=== PATIENT | male | born 1955 | race Caucasian/White ===

== ENCOUNTER 2024-04-20 09:22 | Inpatient (IN) | payer MEDICARE, BC ==
[~2024-04-20] VITALS: Ht 172.7 cm; Wt 69.7 kg
[2024-04-20] VITALS (13 sets, daily range): BP systolic 116–155; BP diastolic 69–87
[2024-04-20 09:42] LABS: EOSINOPHILS 2.5 % (0-6); HEMATOCRIT 43.2 % (35.0-50.0); HEMOGLOBIN 13.8 g/dL (12.0-18.0); LYMPHOCYTES 30.5 % (24-44); MCH 29.4 (27-36); MCV 91.7 fl (81-99); MONOCYTES 11.8 % (0-12); NEUTROPHILS 54.2 % (39-80); PLATELET COUNT 264 K/uL (140-440); RDW 15.2 (10.5-15.0)
[2024-04-20] MEDS ORDERED: ondansetron HCL 4 MG/2 ML VIAL IV ONE (09:45)
[2024-04-20] MEDS ORDERED: SODIUM CHLORIDE 0.9% 1,000 ML IV ONE ×2 (09:45→14:48)
[2024-04-20] MEDS ORDERED: HYDROmorphone HCL 1 MG/ML SYR IV PRN ×3 (09:45→18:45)
[2024-04-20 09:50] LABS: ALBUMIN 3.4 g/dL (3.4-5.0); ALBUMIN/GLOBULIN RATIO 0.77 (1.1-2.4); ANION GAP 15.5 (7-21); BILIRUBIN, TOTAL 0.6 ng/dL (0.2-1.0); BUN/CREATININE RATIO 16.44 (6.0-28.6); CALCIUM 9.1 mg/dL (8.5-10.1); CREATININE, SERUM 1.52 mg/dL (0.70-1.30); POTASSIUM 4.5 mmol/L (3.5-5.1); PROTEIN, TOTAL 7.8 g/dL (6.4-8.2)
[2024-04-20] MEDS ORDERED: LIDOCAINE 2% VISCOUS 6 ML SYR TOP ONE ×2 (10:45→19:45)
[2024-04-20] MEDS ORDERED: LACTATED RINGER'S 1,000 ML IV SCH ×2 (11:15→13:00)
[2024-04-20 12:00] LABS: BILIRUBIN, URINE NEGATIVE (negative); BLOOD/HGB, URINE TRACE-I (Negative); KETONE, URINE NEGATIVE (Negative); LEUK ESTERASE, URINE TRACE (negative); NITRITE, URINE POSITIVE (negative); PH, URINE 6.5 (5-7)
[2024-04-20 12:08] LABS: BACTERIA, URINE 3+ /hpf (negative); CASTS, URINE NONE SEEN \\lpf; COLLECTION TYPE, URINE CLEAN CATCH; CRYSTALS, URINE NONE SEEN (0-1+); EPITHELIAL CELLS, URINE SQUAMOUS 1+ /lpf (0-1+); REFLEX CULTURE, URINE Yes (No); WHITE BLOOD CELLS, URINE >50 /HPF (0-5)
[2024-04-20] MEDS ORDERED: FAMOTIDINE 20 MG/ 2 ML VIAL IV SCH (12:54)
[2024-04-20] MEDS ORDERED: HEParin SOD (PORCINE) 5,000 UNIT/0.5 ML SYR SUB-Q SCH (12:54)
[2024-04-20] MEDS ORDERED: KETOROLAC TROMETHAMINE 30 MG/ML VIAL IV PRN (13:00)
[2024-04-20] MEDS ORDERED: MORPHINE SULFATE 10 MG/ML VIAL IV PRN ×2 (13:00→18:45)
[2024-04-20] MEDS ORDERED: ondansetron HCL 4 MG/2 ML VIAL IV PRN (13:00)
[2024-04-20] MEDS ORDERED: CEFAZOLIN SODIUM 2 GM/20 ML SYR IV ONE (13:00)
[2024-04-20] MEDS ORDERED: HEParin SOD (PORCINE) 5,000 UNIT/ML SDV SUB-Q SCH (13:30)
--- NOTE | 2024-04-20 14:00 | NUR ---
BEDSIDE REPORT RECIEVED FROM ROBERTO CAMPBELL. PT LAYING IN BED REPORTING PAIN 7/10 TO ABD. 1411 PRN MEDICATION ADMINISTERED, SEE MAR, FOR PAIN 7/10 TO ABD. IV FLUSHES WNL. 1420 ROBERTO ZENDEJAS FROM SURGERY HERE TO TAKE PT DOWN. HEBERT EMPTIED. SCDs PLACED. PT TAKEN FOR SURGERY IN BED. NO OTHER NEEDS FROM THIS RN.
[2024-04-20] MEDS ORDERED: propofoL 200 MG/20 ML VIAL ONE (14:42)
[2024-04-20] MEDS ORDERED: ondansetron HCL 4 MG/2 ML VIAL ONE (14:42)
[2024-04-20] MEDS ORDERED: LIDOCAINE HCL 2% 5 ML SDV ONE (14:44)
[2024-04-20] MEDS ORDERED: ROCURONIUM BROMIDE 50 MG/5 ML SYR ONE ×2 (14:44→16:34)
[2024-04-20] MEDS ORDERED: fentaNYL citrate 100 MCG/2 ML VIAL ONE (14:46)
--- NOTE | 2024-04-20 14:50 | NUR ---
REPORT GIVEN TO ROBERTO CONTRERAS.
[2024-04-20] MEDS ORDERED: ePHEDrine sulfate 50 MG/ML AMP ONE ×2 (15:14→17:02)
[2024-04-20 15:38] LABS: ABO A; ANTIBODY SCREEN NEGATIVE; RH POSITIVE
[2024-04-20] MEDS ORDERED: PHENYLEPHRINE HCL 10 MG/ML VIAL ONE ×2 (16:04)
[2024-04-20] MEDS ORDERED: SUGAMMADEX SODIUM 200 MG/2 ML ML ONE (17:00)
[2024-04-20] MEDS ORDERED: DEXAMETHASONE SOD PHOS 4 MG/ML VIAL ONE (17:51)
[2024-04-20] MEDS ORDERED: KETOROLAC TROMETHAMINE 30 MG/ML VIAL ONE (17:51)
[2024-04-20] MEDS ORDERED: MEPERIDINE HCL 25 MG/1 ML VIAL IV PRN (18:45)
[2024-04-20] MEDS ORDERED: droPERidol 5 MG/2 ML VIAL IV PRN (18:45)
[2024-04-20] MEDS ORDERED: NALOXONE HCL 0.4 MG SYR IV PRN (18:45)
[2024-04-20] MEDS ORDERED: CEFAZOLIN SODIUM 2 GM/20 ML SYR IV SCH (18:45)
[2024-04-20] MEDS ORDERED: fentaNYL citrate 50 MCG/ML SDV IV PRN (18:45)
[2024-04-20] MEDS ORDERED: diphenhydrAMINE HCL 50 MG/ML VIAL IV PRN (18:45)
--- NOTE | 2024-04-20 18:59 | NUR ---
PATIENT ARRIVED TO ROOM 129 FROM PACU AT 1850. REPORT RECEIVED FROM STEELER CHELSIE PRIOR TO ARRIVE. PACU REPORT RECEIVED FROM ROBERTO CHOWDARY. PATIENT IS AOX4. REPORTS PAIN "1 BUT I WOULDNT CALL IT PAIN, JUST MORE DISCOMFORT LIKE A STRETCHY FEELING." VS CHARTED. ORIENTED TO ROOM AND CALL LIGHT FUNCTIONS. BED EXIT ALARM PLACED.
--- NOTE | 2024-04-20 19:17 | NUR ---
04/20/241916 Yuli Brown 1802- PT ARRIVES TO PACU, SEMI [place] POSITION. PT EYES OPEN, PT IS CONFUSED TALKING ABOUT THINGS AT HOME. PT IS COMBATIVE AND TRYING TO SIT UP. REORIENTED PT TO TIME AND PLACE. UNABLE TO OBTAIN VITAL SIGNS INITIALLY. O2 AT 8L PER MASK, ALL MONITORS IN PLACE. SALINE LOCK TO LFA, LR INFUSING TO RFA IV. STAFF ATTEMPTING TO REDIRECT PT. 1805- PT STARTING TO CALM DOWN, UNDERSTANDS HE JUST GOT OUT OF SURGERY. PT IS BECOMING COOPERATIVE. 1810- O2 MASK IS SLIPPING, PT IS CONFUSING THE MASK STRINGS FOR HIS HEARING AIDS. PT MADE AWARE HEARING AIDS ARE IN A SAFE CONTAINER. O2 REMOVED AT THIS TIME. DRESSING IN PLACE TO MIDLINE ABD, CDI. PT HAS INTERMITTENT COUGH. 1822- PT SAT UP IN BED, REPORTS MINIMAL PAIN AND TOLERABLE. DENIES NAUSEA. PT REQUESTING WATER DUE TO DRY MOUTH. DR AZEEM PEARSON WITH SIPS, ICE CHIPS PROVIDED. 1830- PT CONTINUES TO HAVE INTERMITTENT COUGH, EDUCATED ON SPLINTING ABD WITH COUGHING OR MOVING AROUND. HEBERT CATHETER SECURED TO PT LEG, SMALL AMOUNT OF CLEAR YELLOW URINE DRAINING. NO SIGNS OF DISTRESS. 1855- PT TAKEN TO ICU, ALERT AND ANSWERING QUESTIONS. ABD SOFT, NON DISTENDED. DRESSING IN PLACE, CDI, ASSESSED WITH MULTIPLE ICU NURSES. LR INFUSING TKO TO RFA, LFA IV SALINE LOCKED. PT TRANSPORTED WITH CARDIAC MONITORING IN PLACE. REPORT TO LISA MEJIA AT BEDSIDE, NO SIGNS OF DISTRESS. CARE OF PT TURNED OVER AT THIS TIME.
--- NOTE | 2024-04-20 19:35 | NUR ---
REPORT RECEIVED FROM DAY SHIFT RN. PATIENT RESTING IN BED. DENIES ANY PAIN OR DISCOMFORT AT THIS TIME. MIDLINE DRESSING CDI. CALL LIGHT WITHIN REACH.
[2024-04-20 20:09] LABS: ALBUMIN 2.7 g/dL (3.4-5.0); ALBUMIN/GLOBULIN RATIO 0.73 (1.1-2.4); ANION GAP 13.1 (7-21); BILIRUBIN, TOTAL 0.3 ng/dL (0.2-1.0); BUN/CREATININE RATIO 15.82 (6.0-28.6); CREATININE, SERUM 1.39 mg/dL (0.70-1.30); POTASSIUM 5.1 mmol/L (3.5-5.1); PROTEIN, TOTAL 6.4 g/dL (6.4-8.2)
--- NOTE | 2024-04-20 20:30 | NUR ---
PATIENT RESTING IN BED WITH EYES CLOSED. RESPIRATIONS EVEN AND UNLABORED. HS MEDICATIONS GIVEN. PATIENT DENIES ANY PAIN AT THIS TIME. DRESSING TO ABD REMAINS CDI. BOWEL TONES HYPOACTIVE AT THIS TIME. LUNGS CTA, DIM IN THE BASES. NOTED BRUISE TO RIGHT ELBOW. IV SITES REMAIN PATENT. IVF INFUSING WITH NO ISSUES OR CONCERNS. PATIENT ALERT AND ORIENTED X 4. SMALL SIPS OF CLEAR FLUIDS GIVEN. VSS. NO FURTHER NEEDS AT THIS TIME. CALL LIGHT WITHIN REACH.
--- NOTE | 2024-04-20 21:01 | NUR ---
THIS RN CALLED PATIENTS WITH UPDATE.
--- NOTE | 2024-04-20 21:47 | EKG ---
[facility] [address] [facility] [place] [id number] Signed Unusual P axis, possible ectopic atrial bradycardia Left axis deviation Nonspecific ST and T wave abnormality Abnormal ECG No previous ECGs available Confirmed by Gill Urbano MD () on 04/20/2024 9:47:38 PM Electronically Signed By: GILL URBANO MD 04/20/24 2147 PATIENT NAME: VAN ALVAREZ Electrocardiogram DATE OF : 55 PHYSICIAN: GILL URBANO MD REPORT #: [id number] REPORT IS CONFIDENTIAL AND NOT TO BE RELEASED WITHOUT AUTHORIZATION
--- NOTE | 2024-04-20 21:48 | NUR ---
PATIENT RESTING QUIETLY IN BED, HEAD OF BED ELEVATED, CALL LIGHT IN REACH NO DISTRESS NOTED, SLIGHT SNORING NOTED, PATIENT ON ROOM AIR 96% OXYGEN SATURATION. V/S STABLE NOTED WHILE SLEEPING PATIENT HEART RATE IN 50'S CURRNENTLY 57/MIN, THIS IS NOT NEW.
--- NOTE | 2024-04-20 22:42 | NUR ---
ASSISTED PATIENT WITH REPOSITIONING IN BED. PATIENT DENIES ANY PAIN AT THIS TIME. CALL LIGHT WITHIN REACH.
--- NOTE | 2024-04-20 22:43 | NUR ---
ATTMEPTED TO CALL TWICE ON CELL PHONE TO REPORT LOW URINE OUT. SAID ON PHONE EARLIER THAT HE WOULD ROUND IN CCU LATER.
--- NOTE | 2024-04-20 22:56 | NUR ---
IN UNIT, GAVE ORDER FOR 500ML BOLUS.
[2024-04-20] MEDS ORDERED: LACTATED RINGER'S 500 ML IV ONE (23:00)
[2024-04-21] VITALS (15 sets, daily range): BP systolic 113–150; BP diastolic 68–94
--- NOTE | 2024-04-21 00:20 | NUR ---
ASSESSMENT COMPLETED. MIDLINE DRESSING REMAINS CDI. PATIENT WITH BOWEL TONES IN ALL 4 QUADRANTS. DENIES PAIN OR DISCOMFORT AT THIS TIME. ALERT AND ORIENTED X 4. NOTED URINE OUTPUT NOT SUFFICIENT. PATIENT WAS BLADDER SCANNED WITH 525ML ON SCAN. HEBERT WAS FLUSHED. URINE RETURN WITH LARGE AMOUNT OF SEDIMENT NOTED. WILL CONTINUE TO MONITOR HEBERT OUTPUT CLOSELY. AT THIS TIME URINE IS QUANITY SUFFICIENT. IVF INFUSING WITH NO ISSUES. VSS AFEBRILE. NO FURTHER NEEDS AT THIS TIME. CALL LIGHT WITHIN REACH.
[2024-04-21] MEDS ORDERED: CEFAZOLIN SODIUM 2 GM/20 ML SYR IV SCH (01:00)
--- NOTE | 2024-04-21 02:00 | NUR ---
PATIENT RESTING IN BED WITH EYES CLOSED. RESPIRATIONS EVEN AND UNLABORED. VSS. HEBERT DRAINAING YELLOW URINE. CALL LIGHT WITHIN REACH.
--- NOTE | 2024-04-21 04:03 | NUR ---
PATIENT RESTING IN BED WITH EYES CLOSED, RESPRIATIONS EVEN AND UNLABORED. CALL LIGHT WITHIN REACH.
--- NOTE | 2024-04-21 04:52 | NUR ---
HEBERT EMPTIED. URINE YELLOW IN COLOR WITH SEDMIMENT. DRESSING TO MIDLINE INCISION REMAINS CDI, SAME SCANT AMOUNT OF DRAINAGE NOTED. PATIENT DENIES PASSING GAS OR NUASEA AT THIS TIME. VSS, PATIENT REPORTS HIS PAIN IS TOLLERABLE AND STATED, " I KNOW IT'S THERE." DENEIS ANY NEEDS AT THIS TIME. CALL LIGHT WITHIN REACH.
[2024-04-21 05:24] LABS: BASOPHILS 0.1 % (0-2); HEMATOCRIT 33.1 % (35.0-50.0); HEMOGLOBIN 10.8 g/dL (12.0-18.0); LYMPHOCYTES 5.9 % (24-44); MCH 29.6 (27-36); MCHC 32.6 g/dl (30-36); MCV 90.7 fl (81-99); MONOCYTES 7.2 % (0-12); NEUTROPHILS 86.8 % (39-80); PLATELET COUNT 193 K/uL (140-440); RBC 3.65 M/ul (4.3-5.7); RDW 15.2 (10.5-15.0)
--- NOTE | 2024-04-21 06:39 | NUR ---
PATIENT NOTED TO HAVE FACIAL GRIMICING, PAIN ASSESSED PRN ADMINSTERED. HEBERT CATH FLUSHED VIA STERILE PROCEDURE. NO FURTHER NEEDS CALL LIGHT WITHIN REACH.
--- NOTE | 2024-04-21 07:36 | NUR ---
SHIFT REPORT RECEIVED FROM ROBERTO RICH. PATIENT RESTING IN BED WITH EYES CLOSED, RESPIRATIONS EVEN AND UNLABORED. REMAINS ON TELEMETRY, SINUS RHYTHM HR IN THE 60S. CALL LIGHT IN REACH.
[2024-04-21] MEDS ORDERED: LACTATED RINGER'S 500 ML IV ONE (08:00)
--- NOTE | 2024-04-21 08:10 | NUR ---
UR CLINICAL REVIEW: MCG/2 MN FOR [facility]ERS[facility] INPT CRITERIA MEDICARE INPT 04/20/24 @ 1254 ORDER MATCHES REG NO AUTH REQUIRED PER MEDICARE GUIDELINES DISCHARGE PENDING FURTHER TREATMENT NEEDS
--- NOTE | 2024-04-21 10:00 | NUR ---
PATIENT RESTING IN BED. WAKES EASILY TO NAME. HEBERT CATHETER REMAINS PATENT. ACTIVITY EDUCATION PROVIDED. PATIENT WISHES TO REST AT THIS TIME UNTIL DR. GANN ROUNDS BUT AGREEABLE GETTING OOBTC AFTER ROUNDS. DENIES NEEDS AT THIS TIME. CALL LIGHT IN REACH.
--- NOTE | 2024-04-21 10:39 | NUR ---
VISITED DURING SPIRITUAL CARE ROUNDS. PT APPEARED TO BE SLEEPING. DID NOT DISTURB. PROVIDED PRAYER.
--- NOTE | 2024-04-21 11:05 | NUR ---
PATIENT RESTING WITH EYES CLOSED, ALLOWED TO REST AT THIS TIME. WILL RETURN TO COMPLETE ASSESSMENT LATER TODAY.
--- NOTE | 2024-04-21 11:21 | NUR ---
DR. GANN IN TO SEE PATIENT. PATIENT ENGAGED AND ASKED QUESTIONS OF PROVIDER. PLAN OF CARE UPDATED AND REVIEWED WITH PATIENT, DENIES QUESTIONS OR CONCERNS.
--- NOTE | 2024-04-21 12:15 | NUR ---
PATIENT UP IN RECLINER, INFORMED HIM THIS NURSE IS PART OF CASE MANAGEMENT AND WOULD LIKE TO DISCUSS HIS NEEDS, IF ANY. ASKS WHAT CASE MANAGEMENT ENTAILS, INFORMED HIM. STATES "IF I NEED ANYTHING I'LL LET YOU KNOW." STATES HE HAS NO DME, HE STILL DRIVES, HAS NO FINANCIAL ISSUES. DENIES NEEDS AT THIS TIME. INSTRUCTED TO NOTIFY STAFF IF HE THINKS OF NEEDS. VERBALIZES UNDERSTANDING.
--- NOTE | 2024-04-21 12:26 | NUR ---
MED REC COMPLETE
--- NOTE | 2024-04-21 12:28 | NUR ---
PATIENT UP TO CHAIR FOR APPROXIMATELY AN HOUR. TOLERATED AMBULATING WELL. CONTINUES TO REMAIN IN CHAIR WITHOUT COMPLAIN. ATTEMPTED TO GET UP WITHOUT ASSISTANCE. SAFETY EDUCATION PROVIDED AND REITERATED TO CALL NURSING STAFF FOR ASSISTANCE. LUNCH PROVIDED. CALL LIGHT IN REACH. DENIES OTHER NEEDS.
--- NOTE | 2024-04-21 13:54 | NUR ---
PATIENT REMAINS UP IN CHAIR. DENIES PAIN WHEN ASKED, JUST REPORTS "IT'S TENDER" IN REFERENCE TO HIS INCISION SITE. DOES ENDORSE TENDERNESS TO PALPATION BUT DENIES NEED FOR PAIN MEDICATION AT THIS TIME. HEBERT CATHETER IS PATENT WITH CLEAR YELLOW URINE. FRESH WATER PROVIDED. CALL LIGHT IN REACH.
--- NOTE | 2024-04-21 15:20 | NUR ---
PATIENT REMAINS UP IN CHAIR RESTING WITH EYES CLOSED. RESPIRATIONS EVEN AND UNLABORED. CALL LIGHT IN REACH.
--- NOTE | 2024-04-21 16:29 | NUR ---
PATIENT MEDICATED WITH TORADOL PER EMAR FOR "SORENESS". C/O SORENESS TO RIBS AND ABDOMEN. UP TO AMBULATE IN THE HALLWAY, LOOPED CCU X 2 THEN MED/SURG UNIT X3. TOLERATED WELL. REPORTED IMPROVEMENT IN SORENESS AFTER AMBULATING. VS CHARTED. LEFT FOREARM IV REMOVED DUE TO LEAKING, TIP INTACT. BACK TO BED, PATIENT SITTING UP IN BED WHILE READING THE NEWSPAPER. HEBERT REMAINS PATENT AND DRAINING CLEAR YELLOW URINE. CALL LIGHT IN REACH.
--- NOTE | 2024-04-21 17:30 | NUR ---
PATIENT REQUESTED BELONGINGS BAG. REMOVED A CONTAINER OF ZYNS. PATIENT REFUSED TO GIVE TO THIS RN AND PLACED A POUCH IN HIS MOUTH. EDUCATION PROVIDED ON NICOTINE USE AND NON-PRESCRIBED NICOTINE. BELONINGS REMOVED FROM REACH AT THIS TIME.
--- NOTE | 2024-04-21 17:46 | NUR ---
DR. GANN UPDATED ON ZYN USE, URINE OUTPUT AND UPDATE ON PAIN CONTROL MEASURE. DR GANN TO PLACE PO PAIN MEDICATION ORDERS. ORDER RECEIVED TO OFFER 21MG NICOTINE PATCH.
[2024-04-21] MEDS ORDERED: NICOTINE 21 MG/24 HR 1 EA TDSY TD SCH (17:52)
--- NOTE | 2024-04-21 18:29 | NUR ---
PATIENT DECLINED NICOTINE PATCH. AGREES TO NOT USE ZYNS WHILE IN THE HOSPITAL. PATIENT WISHES TO REST IN BED AT THIS TIME. SCDS PLACED AND ON. WARM BLANKET PROVIDED WELL FRESH WATER. CALL LIGHT IN REACH.
--- NOTE | 2024-04-21 19:20 | NUR ---
REPORT RECEIVED FROM DAY SHIFT RN. PATIENT RESTING IN BED. HEBERT CATHERTER DRAINAING YELLOW URINE. SCD'D IN PLACE. IVF INFUSING WITH NO ISSUES. PATIENT DENIES ANY PAIN OR DISCOFORT. DRESSING TO MIDLINE CDI. ICE PACK GIVEN FOR MIDLINE INCISION. NO FURTHER NEEDS AT THIS TIME. BED ALARM ON, CALL LIGHT WITHIN REACH.
[2024-04-21] MEDS ORDERED: IBUPROFEN 600 MG TAB PO PRN (20:30)
[2024-04-21] MEDS ORDERED: ACETAMINOPHEN 500 MG TAB PO PRN (20:30)
[2024-04-21] MEDS ORDERED: OXYCODONE/APAP 7.5/325 TAB PO PRN (20:30)
--- NOTE | 2024-04-21 20:30 | NUR ---
TELEPHONE ORDERS RECEIVED FROM FOR PO PAIN CONTROL. VERIIFIED VIA REPEAT BACK METHOD. SEE EMAR. NOTIFIED PRIMARY RN.
--- NOTE | 2024-04-21 20:30 | NUR ---
PATIENT OUT OF BED. AMBULATING AROUND THE UNIT, AMBULATED THROUGH MED SURG FLOOR WITH NO DIFFICULTY. TOLLERATING ACTIVITY WELL. MIDLINE DRESSING REMAINS CDI, NOTED SMALL SHADOWING. BOWEL TONES HYPOACTIVE IN UPPER QUADRANTS, ACTIVE IN LOWER QUADRANTS. DENIES ANY NAUSEA, DENIES ANY PASSING OF GAS AT THIS TIME. HEBERT EMPTIED, DRAINAING YELLOW URINE. IV SITE PATENT. LUNGS CTA. PATIENT REPORTS PAIN TO MIDLINE INCISION. PRN GIVEN SEE MAR. HS MEDICATIONS ADMINSTERED. FRESH WATER GIVEN. ICE PACK GIVEN AND PLACED ON ABDOMEN. NO FURTHER NEEDS AT THIS TIME. CALL LIGHT WITHIN REACH.
--- NOTE | 2024-04-21 22:07 | NUR ---
PATIENT RESTING IN BED WITH EYES CLOSED. RESPRIATIONS EVEN AND UNLABORED. IVF INFUSING, HEBERT CATHERTER DRAINAING WITH NO CONCERNS. SCD'S IN PLACE. CALL LIGHT WITHIN REACH.
[2024-04-22] VITALS (8 sets, daily range): BP systolic 99–132; BP diastolic 67–79
--- NOTE | 2024-04-22 00:30 | NUR ---
PATIENT RESTING IN BED. REPORTS PAIN IS " MINIMAL". BOWEL TONES HYPOACTIVE THROUGHOUT AT THIS TIME. DENIES PASSING GAS, PATIENT DENIES ANY NAUSEA. ABX GIVEN SEE MAR. MIDLINE INCISION REMANINS UNCHANGED, CDI. DENIES ANY NEEDS AT THIS TIME. CALL LIGHT WITHIN REACH.
--- NOTE | 2024-04-22 02:13 | NUR ---
PATIENT RESTING IN BED WITH EYES CLOSED. RESPIRATIONS EVEN AND UNLABORED. CALL LIGHT WITHIN REACH, BED ALARM ON.
--- NOTE | 2024-04-22 03:11 | NUR ---
NEW BAG OF IVF HUNG. IV SITE REMAINS PATENT AND WNL.
[2024-04-22 05:15] LABS: BASOPHILS 0.3 % (0-2); EOSINOPHILS 3.2 % (0-6); HEMATOCRIT 31.9 % (35.0-50.0); HEMOGLOBIN 10.4 g/dL (12.0-18.0); MCH 29.2 (27-36); MCHC 32.5 g/dl (30-36); MCV 89.8 fl (81-99); MONOCYTES 8.4 % (0-12); NEUTROPHILS 74.1 % (39-80); PLATELET COUNT 172 K/uL (140-440); RBC 3.55 M/ul (4.3-5.7); RDW 15.4 (10.5-15.0)
[2024-04-22 05:25] LABS: ANION GAP 9.3 (7-21); BUN/CREATININE RATIO 17.64 (6.0-28.6); CREATININE, SERUM 1.02 mg/dL (0.70-1.30); POTASSIUM 4.3 mmol/L (3.5-5.1)
--- NOTE | 2024-04-22 05:45 | NUR ---
PATIENT DENEIS ANY PAIN AT THIS TIME. BOWEL TONES REMAIN HYPOACTIVE. MIDLINE INCISION IS CDI WITH SAME AMOUNT OF SHADOWNING NOTED AT START OF THIS SHIFT. DENIES PASSING OF GAS BUT REPORTS, " I FEEL LIKE I MIGHT NEED TO GO TO THE BATHROOM." IV SITE REMAINS PATENT. VSS. NO FURTHER NEEDS AT THIS TIME. CALL LIGHT WITHIN REACH.
--- NOTE | 2024-04-22 06:33 | NUR ---
PATIENT MOVED TO ROOM 126. OPRIENTED TO ROOM AND CALL LIGHT. C/O DISCOMFORT TO MIDLINE INCISION. PRN GIVEN SEE MAR. NO FURTHER NEEDS AT THIS TIME. CALL LIGHT WITHIN REACH.
--- NOTE | 2024-04-22 07:00 | NUR ---
REPORT RECIEVED FROM ROBERTO RICH. PT SITTING UP IN BED ON PHONE. PT DENIES ANY NEEDS AT THIS TIME. CALL LIGHT IN REACH.
--- NOTE | 2024-04-22 08:04 | NUR ---
BOARD HAS BEEN UPDATED AND CALL LIGHT HAS BEEN PLACED WITHIN REACH, PATIENT REQUESTED HOT WATER FOR TEA. I DOUBLED THE CUP WHEN GIVING IT TO PATIENT AND LET IT COOL FOR A FEW MINTUES.
--- NOTE | 2024-04-22 08:33 | NUR ---
IN TO ADMINISTER MEDICAITONS, SEE MAR. PT SITTING UP IN BED AND RESPONDS WHEN ADDRESSED. IV FLUSHES WNL. PT REPORTING PAIN /10 AND STATES "MORE JUST SORENESS NOT REALLY PAIN." PT DENIES NICOTINE PATCH THIS MORNING. ASSESSMENT COMPLETE. LUNG SOUNDS CLEAR. BOWEL TONES HYPOACTIVE. ABD SOFT. ABD TENDERNESS WITH PALPATION. MIDLING DRESSING D/I WITH SMALL AMOUNT OF SHADOWING TOWARDS LOWER PORTION OF DRESSING. PEDAL PULSES PALPABLE, EQUAL AND STRONG. RADIAL PULSES PALPABLE, EQUAL AND STRONG. BREAKFAST ARRIVES. PT DENIES ANY OTHER NEEDS AT THIS TIME. CALL LIGHT IN REACH.
--- NOTE | 2024-04-22 11:47 | NUR ---
IN ROOM TO ROUND ON PT. PT DENIES PAIN AT THIS TIME. PT DENIES PASSING FLATUS. PT REQUESTING TO AMBULATED. PT AMBULATES [place]HE[place] WITH STEADY GAIT WITH THIS RN X4 LAPS.
--- NOTE | 2024-04-22 12:05 | NUR ---
IN WITH DR. GANN. PT AND DR. GANN DISCUSS PLAN. PT AGREEABLE. PER DR. GANN PT WILL BE LOW FIBER DIET. PT CAN SELF CATH, SO OKAY TO DC HEBERT. OKAY TO DC IV FLUIDS. VERIFIED WITH REPEAT BACK. PT DENIES ANY OTHER NEEDS AT THIS TIME. CALL LIGHT IN REACH.
[2024-04-22] MEDS ORDERED: CIPROFLOXACIN 500 MG TAB PO SCH (12:14)
[2024-04-22] MEDS ORDERED: CIPROFLOXACIN500 MG PO (12:18)
[2024-04-22] MEDS ORDERED: OXYCODON-ACETA1 EAC2 PO (12:18)
[2024-04-22] MEDS ORDERED: ACETAMINOPHEN500 MG PO (12:18)
[2024-04-22] MEDS ORDERED: FAMOTIDINE20 MG PO (12:18)
[2024-04-22] MEDS ORDERED: NICOTINE1 EAC2 TD (12:18)
[2024-04-22] MEDS ORDERED: IBUPROFEN600 MG PO (12:18)
[2024-04-22] MEDS ORDERED: FLOMAX0.4 MG PO (12:19)
[2024-04-22] MEDS ORDERED: TAMSULOSIN HCL 0.4 MG CAP PO SCH (12:30)
--- NOTE | 2024-04-22 12:46 | NUR ---
FLUID REMOVED FROM HEBERT CATHETER BALLOON. CATHETER REMOVED, TIP INTACT. PT TOLERATED PROCEDURE WELL.
--- NOTE | 2024-04-22 14:00 | NUR ---
REPORT GIVEN TO ROBERTO CONTRERAS.
--- NOTE | 2024-04-22 14:54 | NUR ---
pt is in room and asked for help ordering dinner and is in room watching television. no other cares needed at this time call light within reach
[2024-04-22] MEDS ORDERED: FAMOTIDINE 20 MG TAB PO SCH (21:00)
--- NOTE | 2024-04-22 21:01 | NUR ---
Patient awake, alert and oriented x4, no distress. Patient reports overall good pain control, no nausea. Patient reports last bowel movement was prior to surgery. Vital signs stable. Patient has active bowel tones x4 quadrants. Percocet 7.5/325mg one tab and ibuprofen 600mg po admin per patient request for 3/10 abdominal pain. Fresh water provided. Call light within reach of pt.
--- NOTE | 2024-04-23 01:12 | NUR ---
REPORT FROM DORIS LEDESMA ON BACK, COVERED UP, RESP EVEN AND UNLABORED.
--- NOTE | 2024-04-23 02:53 | NUR ---
rounded on pt. Pt states he was up recently and used bathroom, denies needs, offered to help pt repostion higher in bed as feet were touching foot board, he denied, stated he is comfortable.
[2024-04-23 05:03] VITALS: BP 114/67
--- NOTE | 2024-04-23 05:10 | NUR ---
CHECKED ON PT, AWAKE, REQUESTED BLACK TEA. [employer] INSTRUCTOR INTO ROOM TO DO VS. ASSESSMENT COMPLETED. PT STATED UNLESS HE WAS DREAMING, HE PASSED A LITTLE GAS THIS AM. BOWEL SOUNDS HYPOACTIVE, ABD TENDER, NOT DISTENDED, DRESSING UNCHANGED THIS SHIFT, SCANT OLD DRAINAGE PRESENT. PT STATED THAT HE STRAIGHT CATHED PRIOR TO BED, AND ONCE DURING THE NIGHT. "I AM DRY" SO THAT WORKED OUT SELL, INDICATING HIS ATTENDS WAS CLEAN. DENIES THE NEED FOR PAIN MED, WAS ABLE TO SIT UP HIGHER IN BED. HEARING AIDES GIVEN TO PT PER HIS REQUEST. NO OTHER NEEDS AT THIS TIME.
[2024-04-23 05:17] VITALS: BP 114/67
--- NOTE | 2024-04-23 07:07 | NUR ---
Pt report received from ROBERTO Valerio. Pt is awake, resting supine in bed. Pt requests more hot water for his tea, denies any other needs at this time, denies pain. Call light in reach.
--- NOTE | 2024-04-23 07:28 | NUR ---
pt in bed this am, this diet attendant helped pt order preferred meal from kitchen. no other request were made at this time. call light within reach.
--- NOTE | 2024-04-23 09:01 | NUR ---
PT WALKING SEVERAL LAPS IN PACHECO AND AROUND RN STATION INDEP.
--- NOTE | 2024-04-23 10:08 | NUR ---
Pt has been up, ambulating the hallway x3 laps after breakfast, then up to the chair. Linen change performed while the pt was ambulating. Pt denies increase in pain more than feeling tight at the incision and states that it subsides when he settles in the bed or chair. He rates his pain a 2 out of 10, which his acceptable baseline. Pt was medicated with motrin per emar. Pt's bowel tones were active at my assessment this morning, and while ambulating, pt states he did pass flatus, but no BM yet. The incision is covered with a small amount of shadowing noted at the bottom of the dressing, but otherwise the dressing is dry and intact.
[2024-04-23 10:31] VITALS: BP 129/78
--- NOTE | 2024-04-23 13:14 | NUR ---
Dr. Brown in with pt discussing discharge.
--- NOTE | 2024-04-23 13:29 | NUR ---
Pt is waiting at nurse's station while Dr. Brown enters discharge orders. He has telephoned his and requested she arrive in about 30 minutes to pick him up.
--- NOTE | 2024-04-23 13:47 | OR ---
[facility] [address], [place] [address] Signed DATE OF OPERATION: 04/20/2024 SURGEON: Arvin Gann MD PREOPERATIVE DIAGNOSES: 1. Closed loop obstruction of small bowel from left transdiaphragmatic hernia-- history of left hemidiaphragm relaxing incision 2. History of esophagectomy with gastric pull-up at [facility] three years ago. 3. History of paraconduit incarcerated hernia (colon) repaired by robotic approach including left diaphragmatic relaxing incision (Dr. Kae Rodriguez, [facility]). POSTOPERATIVE DIAGNOSIS: Closed loop obstruction with strangulated and infarcted segment of small bowel (24 inches via left diaphragmatic hernia). PROCEDURE: 1. Open reduction of left transdiaphragmatic herniated loop of small bowel including partial incision of diaphragm at the herniated location. 2. Repair of diaphragmatic defect without implantation of mesh. 3. Segmental small bowel resection (24 inches) with [id number] isoperistaltic anastomosis). ANESTHESIA: General endotracheal, Alexis Lorenzo CRNA. INDICATIONS: This 69-year-old white man lives in [place], [place], but does have a home in [place] as well. Three years ago he underwent esophagectomy at [facility] in [place], [place] with a gastric pull-up reconstruction of the esophagus. He showed no evidence of recurrent malignancy. One year ago while in [place], [place], he suffered severe and extreme epigastric pain and was found to have a transdiaphragmatic hernia at the conduit site (diaphragmatic ella area) of colon, which was repaired robotically by Dr. Kae Rodriguez following transfer to [facility] in [place]. Review of the operative report shows a relaxing incision was made in the left hemidiaphragm to accommodate adequate repair of the hernia. Mesh was not implanted. This morning, the patient had severe and extreme epigastric pain, which was reminiscent of his previous episode of herniation. He presented to the emergency room where he was evaluated by Dr. George Simon, emergency room physician. A CT scan of the abdomen Electronically Signed By: ARVIN GANN MD 04/23/24 1347 PATIENT NAME: VAN ALVAREZ OPERATIVE REPORT DATE OF : 55 REPORT #: [id number] PHYSICIAN: ARVIN GANN MD PCP: NO PRIMARY CARE PHYSICIAN REPORT IS CONFIDENTIAL AND NOT TO BE RELEASED WITHOUT AUTHORIZATION [facility] [address] [place] [id number] Signed was performed, which confirmed small bowel herniation through the left hemidiaphragm. This did not appear to be a hiatus transgression of small bowel, but rather in the left hemidiaphragm. The operative report was obtained confirming a relaxing incision made in the left hemidiaphragm and likely that site has weakened and allowed for transdiaphragmatic herniation of the small bowel. The patient has been fluid resuscitated and is now to undergo emergency repair of the defect with reduction of the small bowel. The patient and understand the risk of bleeding, infection, need for possible bowel resection, need for other indicated procedures including possible left thoracotomy to allow for adequate reduction of the hernia. Understanding this they wished to proceed. Of special note, the patient has additionally undergone radical cystectomy for malignancy of the bladder in the past and has a probable ileal conduit, which was quite markedly dilated and decompressed with a Cortes catheter. FINDINGS: Found was some dark bloody fluid within the upper abdomen. An open approach was undertaken. The previous repair at the diaphragm, the gastric conduit was without sign of herniation or ischemia. A loop of bowel indeed was herniated through the left posterolateral diaphragm likely related to ther relaxing incsion of the left diaphragm from a year ago. Reduction of the hernia was challenging requiring some extension of the diaphragmatic defect as completely infarcted bowel was noted within the herniated portion above the diaphragm. No rupture of the bowel occurred during and careful and meticulous mobilization of the bowel. Essentially complete necrosis was noted, though the serosa was intact. There was some old blood within the small bowel downstream. Operation included repair of the diaphragmatic defect with interrupted Prolene suture without implantation of mesh and good repair was accomplished. Segmental small bowel resection of 24 inches of completely necrotic bowel was undertaken as well with a [id number]-[id number] functional end-to-end enteroenterostomy. There were no other findings of concern. DESCRIPTION OF PROCEDURE: The patient was brought to the operating room, given a general endotracheal anesthetic. Preoperative antibiotic Ancef was given. Sequential compression device stockings were used and heparin subcutaneously administered. The abdomen and chest were prepared with a chlorhexidine solution and draped sterilely. The operative field extended from above the nipples inferiorly to the knees. Electronically Signed By: ARVIN GANN MD 04/23/24 134 PATIENT NAME: VAN ALVAREZ OPERATIVE REPORT DATE OF : 55 REPORT #: [id number] PHYSICIAN: ARVIN GANN MD PCP: NO PRIMARY CARE PHYSICIAN REPORT IS CONFIDENTIAL AND NOT TO BE RELEASED WITHOUT AUTHORIZATION [address] [address] Signed An incision was made extending from the xiphoid to just above the umbilicus. Later the incision was taken around the umbilicus somewhat. The patient has a thin body habitus and an entry to the abdomen was no problem. Upon entry into the abdominal cavity, there was some dark bloody fluid in the upper abdomen. Palpation showed the gastric conduit to be well secured to the diaphragmatic attachments without sign of problem with this portion of bowel. The small bowel extending up to the left hemidiaphragm was quite dense and adherent to the defect. I suspect the herniation has occurred quite a long time ago actually with only recent progression to the acute problem. Various manipulations of the two limbs of bowel extending to the diaphragmatic defect were undertaken, but easy reduction of the hernia was absolutely not forthcoming. On that basis, a right angle clamp was inserted into the defect on the medial aspect along the line of previous diaphragmatic incision freeing the diaphragm a bit more. This did allow for better reduction of some of the bowel. The bowel itself was dense and black and on the verge of liquefactive necrosis in fact. Extreme care was taken in manipulating the bowel to allow for further reduction. Additional opening of the diaphragmatic defect was required, but with extreme care and caution, the bowel loops were able to be more fully examined digitally into the left pleural space and ultimately the bowel was reduced completely. The segment of bowel that had been incarcerated was completely infarcted, but there was no enterotomy or disruption of the bowel through the course of the dissection. Irrigation was undertaken in the pleural area on the left side. The defect of the diaphragm at this point measured approximately 4 cm. The small bowel was set aside and examination of the diaphragm more fully undertaken. The surrounding soft tissue was freed with blunt and electrocautery dissection. Repair of the diaphragmatic defect was deemed most appropriate with primary closure rather than implantation of mesh. There as no undue tension in any way and given the infarcted bowel, mplantation of mesh in the setting was deemed inadvisable. Interrupted 0 Prolene sutures were secured in a horizontal mattress configuration to repair the diaphragmatic defect. Prior to closing the final suture, a red rubber catheter was placed in the left pleural space and aspirated with a syringe and withdrawn, closing the defect definitively. Irrigation was undertaken. There was no sign of untoward bleeding or other problems. Attention was turned towards the small bowel segment. The demarcation of viable versus nonviable bowel was quite obvious. Segmental resection certainly was needed. The mesentery associated with the small bowel segment was incised with electrocautery and hemostats applied to the mesentery securing the vascular pedicles with 2-0 silk ties. A MAMADOU stapling device was used to transect viable bowel proximally and distally. Infarcted segment was sent for permanent pathology. Electronically Signed By: ARVIN GANN MD 04/23/24 1347 PATIENT NAME: VAN ALVAREZ OPERATIVE REPORT DATE OF : 55 REPORT #: [id number] PHYSICIAN: ARVIN GANN MD PCP: NO PRIMARY CARE PHYSICIAN REPORT IS CONFIDENTIAL AND NOT TO BE RELEASED WITHOUT AUTHORIZATION [facility] [address] [place] [id number] Signed The stapled ends of the transected bowel were sewn over with interrupted 3-0 silk suture in a Lembert configuration. A eeir-mz-idbj enteroenterostomy was undertaken in an isoperistaltic fashion with a two-layer technique of interrupted 3-0 silk in the serosal layer and interrupted 3-0 Vicryl in the mucosal layer. Notably, upon opening the bowel segments, old liquefactive of blood was noted within the bowel lumen. The bowel itself was quite viable, however. The mesenteric defect was secured with interrupted 3-0 silk sutures to avoid mesenteric herniation and the bowel was replaced in the abdominal cavity. Copious irrigation with warm saline was undertaken. Inspection of the operative site of the diaphragm showed good hemostasis overall. A small amount of Emilio powdered agent was applied to the area as well. The spleen was examined on its medial aspect and found to be hemostatic without injury, and nearby colonic segments similarly normal. Plans were then made for closure. The midline fascia was reapproximated with running bidirectional #1 PDS suture. The skin closed with running subcuticular 3-0 Vicryl. Steri-Strips were applied as was an active coat dressing. The patient was ultimately extubated and transferred to recovery room in good condition having suffered no known complication. Operation was somewhat prolonged, complicated and difficult. Arvin Gann MD /MODL /[id number] cc: MD Dr. Kae Castañeda [place], [place] Electronically Signed By: ARVIN GANN MD 04/23/24 1347 PATIENT NAME: VAN ALVAREZ OPERATIVE REPORT DATE OF : 55 REPORT #: [id number] PHYSICIAN: ARVIN GANN MD PCP: NO PRIMARY CARE PHYSICIAN REPORT IS CONFIDENTIAL AND NOT TO BE RELEASED WITHOUT AUTHORIZATION [facility] [address] [facility] [place], [place] [address] Signed Copies: GEORGE SIMON MD ~ Electronically Signed By: ARVIN GANN MD 04/23/24 1347 PATIENT NAME: VAN ALVAREZNARD OPERATIVE REPORT DATE OF : 55 REPORT #: [id number] PHYSICIAN: ARVIN GANN MD PCP: NO PRIMARY CARE PHYSICIAN REPORT IS CONFIDENTIAL AND NOT TO BE RELEASED WITHOUT AUTHORIZATION
--- NOTE | 2024-04-23 13:47 | CONS ---
[facility] [address] [place], [place] [address] Signed DATE OF CONSULTATION: 04/20/2024 TIME: 11:40 a.m. REQUESTING PHYSICIAN: Dr. Simon. PROBLEM: Transdiaphragmatic small bowel hernia with probable incarceration. HISTORY OF PRESENT ILLNESS: This 69-year-old white man lives in [place] but does have a residence in [place]. This morning approximately at 7:00 a.m. he has awakened with severe upper abdominal pain and some nausea and vomiting. Notably, the patient has undergone an esophagectomy with a gastric pull-up approximately three years ago at [facility]. Additionally, one year ago having been presenting with similar symptoms at a hospital in [place], [place], he was found to have a presumed transdiaphragmatic hernia for which he was transferred likely to [facility] in [place] and underwent what sounds like a laparoscopic or possibly robotic repair of the diaphragmatic hernia. He is uncertain, but does believe he may have had implantation of some type of mesh associated with the repair. Additionally, he has a distant history of radical cystectomy for bladder cancer for which he has a neobladder in place. He catheterizes himself on a routine basis for that. Evaluation in the emergency room by Dr. George Simon include a CT scan of the abdomen. This did confirm postoperative changes of esophagectomy with a gastric pull-up and poorly enhancing and dilated and edematous small bowel loops extending to what appears to me to be a separate small diaphragmatic defect on the left side. The defect was considered 18 mm in greatest dimension. A normal colon was noted. He had severe atherosclerotic disease. A markedly dilated neobladder was noted and this has since been decompressed with a Cortes catheter. He has no other underlying medical problems, though he does take trazodone on a routine basis. SOCIAL HISTORY: He is . He is accompanied by his at this time. As noted, he lives in [place] Electronically Signed By: ARVIN GANN MD 04/23/24 1347 PATIENT NAME: VAN ALVAREZ CONSULTATION DATE OF : 55 REPORT #: [id number] PHYSICIAN: ARVIN GANN MD PCP: NO PRIMARY CARE PHYSICIAN REPORT IS CONFIDENTIAL AND NOT TO BE RELEASED WITHOUT AUTHORIZATION [facility] [address] [place] [id number] Signed [facility] generally, though does have a place of abode in [place]. REVIEW OF SYSTEMS: He denies any shortness of breath or chest pain per se. He does have upper abdominal pain. He has no fever or chills. PHYSICAL EXAMINATION: GENERAL: Relatively thin white man, who does not look systemically toxic at this time. NECK: Trachea is midline. There is no crepitus. CHEST: Clear. HEART: Regular without murmur. ABDOMEN: Nondistended and generally flat. There are two adjacent incisions lateral to the umbilicus. There is no sign of midline upper incision. He does have a low midline incision related to probable bladder surgery in the past. He does not have inordinate tenderness of the abdomen. I have reviewed the CT scan in detail in multiple planes including lateral, AP and transverse. ASSESSMENT: The patient has what appears to be a transdiaphragmatic hernia likely recurrent from previous repair done one year ago in [place], [place]. I did discuss the issue with the patient and his that the main issue at this point is reduction of the herniated bowel so as to avoid bowel ischemia or compromise and repair the defect as appropriate. Since there has been an apparent similar intervention a year ago in [place], [place], possibility of implanted mesh already in place is worthy of knowing as reduction of the hernia may be more problematic as this may represent a recurrent hernia. Additionally, the possibility of requiring a left lateral thoracotomy for additional intervention has to be considered. I did discuss all this with the patient in detail and with Dr. Simon as well. Plan for now, continue with IV fluids and bladder decompression and will attempt to obtain the operative report from a year ago. Operative intervention will need to be done as promptly as reasonable. He does tell me that at his similar presentation in [place], the operation took place the day following his presentation to that facility. MD TRISH Lainez/EMELYL /[id number] Electronically Signed By: ARVIN GANN MD 04/23/24 1347 PATIENT NAME: VAN ALVAREZ CONSULTATION DATE OF : 55 REPORT #: [id number] PHYSICIAN: ARVIN GANN MD PCP: NO PRIMARY CARE PHYSICIAN REPORT IS CONFIDENTIAL AND NOT TO BE RELEASED WITHOUT AUTHORIZATION [address] [address] Signed cc: George Simon MD Copies: GEORGE SIMON MD ~ Electronically Signed By: ARVIN GANN MD 04/23/24 1347 PATIENT NAME: VAN ALVAREZ CONSULTATION DATE OF : 55 REPORT #: [id number] PHYSICIAN: ARVIN GANN MD PCP: NO PRIMARY CARE PHYSICIAN REPORT IS CONFIDENTIAL AND NOT TO BE RELEASED WITHOUT AUTHORIZATION
--- NOTE | 2024-04-23 13:47 | CONS ---
[facility] [address] [facility] [place], [place] [address] Signed DATE OF CONSULTATION: 04/20/2024 ADDENDUM: TIME: 12:50 p.m. The operative report has been obtained from Josefa Fritz [place] [facility] which was reviewed in detail confirming the patient had a paraconduit hernia (hernia through sauk-suiattle esophageal hiatus) causing herniation of colon. As the defect at the hiatus was quite large and could not be reapproximated, a relaxing incision was made lateral to the paraconduit site. I see no evidence that mesh was implanted in any way. The hiatus was closed with interrupted 0 Ethibond sutures reapproximating the crura and the gastric conduit was pexed to the left ella as well. With that information, it is likely that the relaxing incision itself is responsible for the current hernia defect of small bowel through the diaphragmatic hiatus. I would recommend prompt operation to include reduction of the hernia and repair of the diaphragmatic defect. This may require mesh or some other means of closure. The risk of bleeding, infection, need for additional left lateral thoracotomy incision, and so forth were reviewed with the patient and his . They understand and wished to proceed. We will plan to do operation as soon as reasonable today. In the meantime, preoperative antibiotics and so forth will be initiated. MD TRISH Lainez/STARR /[id number] cc: MD Kae Castañeda MD Electronically Signed By: ARVIN GANN MD 04/23/24 1347 PATIENT NAME: VAN ALVAREZ CONSULTATION DATE OF : 55 REPORT #: [id number] PHYSICIAN: ARVIN GANN MD PCP: NO PRIMARY CARE PHYSICIAN REPORT IS CONFIDENTIAL AND NOT TO BE RELEASED WITHOUT AUTHORIZATION [address] [address] Signed Copies: MONICA SIMON MD ~ Electronically Signed By: ARVIN GANN MD 04/23/24 1347 PATIENT NAME: VAN ALVAREZ CONSULTATION DATE OF : 55 REPORT #: [id number] PHYSICIAN: ARVIN GANN MD PCP: NO PRIMARY CARE PHYSICIAN REPORT IS CONFIDENTIAL AND NOT TO BE RELEASED WITHOUT AUTHORIZATION
[2024-04-23 13:53] VITALS: BP 128/76
--- NOTE | 2024-04-25 16:49 | DS ---
[facility] [address], [place] [address] Signed ADMISSION DATE: 04/20/2024 DISCHARGE DATE: 04/23/2024 REASON FOR ADMISSION: Closed-loop obstruction of small bowel in the left thorax related to diaphragmatic hernia. HISTORY OF PRESENT ILLNESS: This 69-year-old man lives in [place], [place] but does have a home in [place] as well. Three years ago, he underwent esophagectomy at [facility] with a gastric pull-up reconstruction of the esophagus. He has shown no sign of recurrent malignancy with surveillance. He is under the care of Oscar Espino in [facility], medical oncologist. One year ago while visiting in [place], [place], he suffered severe and extreme epigastric pain, was found to have a transdiaphragmatic hernia at the conduit site (diaphragmatic ella area with incarcerated colon). This was repair of robotically by Dr. Kae Rodriguez in [place], [place] at [facility]. Review of the operative report shows a relaxing incision was made in the left hemidiaphragm to accommodate adequate repair of the hernia. The patient presented to [facility] with severe epigastric pain reminiscent of his previous episode of herniation. He was evaluated in the emergency room with CT scan under the direction of Dr. George Simon, emergency room physician confirming small-bowel herniation to the left hemidiaphragm. This did not appear to be a hiatal transgression of the small bowel, but rather a defect in the left hemidiaphragm. He was admitted for further evaluation and care. PERTINENT PHYSICAL EXAMINATION: GENERAL: Showed a well-developed, well-nourished white man, who was not systemically toxic, but was quite uncomfortable. CHEST: Clear. HEART: Regular. ABDOMEN: Showed mild tenderness in the epigastric area. EXTREMITIES: Show no clubbing, cyanosis, or edema. IMAGING DATA: CT scan of the abdomen showed considerable amount of small bowel within the left hemidiaphragm through a defect measured about 1.8 cm. There was no sign of malignancy in the abdomen or chest. Additionally noted was a neobladder which was markedly distended and subsequently decompressed with Cortes catheter. HOSPITAL COURSE: Electronically Signed By: ARVIN GANN MD 04/25/24 1649 PATIENT NAME: VAN ALVAREZ DISCHARGE SUMMARY DATE OF : 55 REPORT #: [id number] PHYSICIAN: ARVIN GANN MD PCP: NO PRIMARY CARE PHYSICIAN REPORT IS CONFIDENTIAL AND NOT TO BE RELEASED WITHOUT AUTHORIZATION [facility] [address], [place] [address] Signed The patient underwent fluid resuscitation, broad-spectrum antibiotic administration and emergency operation, which was accomplished through an upper midline incision. Indeed, he was found to have a closed loop obstruction of small bowel herniated into the left pleural space through the left diaphragmatic defect. I suspect this defect resulted from breakdown of the relaxing incision that had been used a year before to allow for crural reapproximation of the nikolai GE junction. There was no sign of hernia in relation to the hiatus it is noted. The defect required some additional opening to allow for successful reduction of the small bowel. Two feet of small bowel was herniated above the diaphragm that was completely infarcted. There required segmental resection with a functional end-to-end, [id number]-[id number] anastomosis. The diaphragmatic defect was repaired with interrupted 0 Prolene sutures in a horizontal mattress configuration. Mesh was not implanted. The left pleural space was aspirated prior to closure of the defect and postoperative chest x-ray showed no sign of pneumothorax or other issue. His postoperative course was quite unremarkable. He had prompt improvement of his symptoms and was begun on a liquid diet and subsequently full liquid and ultimately a regular diet which he tolerated well. He has passed flatus prior to discharge. As regard to his distended neobladder, Cortes catheterization was undertaken and intermittent catheterization by the patient as is his usual routine initiated as well. A urinalysis had been obtained at the outset by the emergency room personnel, which did show E coli and this was treated with oral antibiotic Cipro. Flomax 0.4 mg was initiated as he did have what appeared to be bladder outlet obstructive type symptoms and he did note improvement with it. Of note, he is to see a urologist in [place], [place] in July regarding his neobladder and urinary retention type complaints. By the time of discharge he is ambulating well, tolerating a regular diet. Incision is healing well and he is requiring essentially no opiate medication. DISCHARGE MEDICATIONS: Will include: 1. Cipro 500 mg p.o. b.i.d. #10. 2. Nicotine 21 mg patch transdermal daily, #30, refill 2. 3. Motrin 600 mg p.o. q.6 hours as needed for pain, #60, no refills. 4. Percocet 7.5/325 1-2 p.o. q. 6 hours p.r.n. pain, #6. 5. Tylenol 500 mg two tablets p.o. q.6 hours as needed for pain, #30, refill 2. 6. Pepcid 20 mg p.o. q.12 hours, #60, refill 0. 7. Flomax 0.4 mg p.o. daily #7, refill 10. DISCHARGE DIAGNOSES: 1. Closed loop obstruction of small bowel with complete infarction (24 inches in length) from left hemidiaphragm defect and herniation into the left pleural space. Electronically Signed By: ARVIN GANN MD 04/25/24 1649 PATIENT NAME: VAN ALVAREZ DISCHARGE SUMMARY DATE OF : 55 REPORT #: [id number] PHYSICIAN: ARVIN GANN MD PCP: NO PRIMARY CARE PHYSICIAN REPORT IS CONFIDENTIAL AND NOT TO BE RELEASED WITHOUT AUTHORIZATION [facility] [address], [place] [address] Signed 2. Distant history of esophagectomy with gastric pull-up ([facility] three years ago). 3. History of paraconduit transdiaphragmatic herniation (colon) repaired at [place], [place] one year ago by Kae Rodriguez MD. 4. Distant history of total cystectomy with neobladder reconstruction requiring daily catheterization. 5. Incidental finding of E coli urinary tract infection. 6. Tobacco dependency (chew). FOLLOW-UP PLANS: He will call on Wednesday to set up an appointment. He will see me back in the office in four weeks more or less. He will return to the ongoing care of his medical oncologist, Dr. Oscar Espino and is anticipated to have urologic followup in July in [place], [place]. MD TRISH Lainez/EMELYL /[id number] cc: Kae Rodriguez MD. MD Dr. Oscar Castañedastein Copies: GEORGE SIMON MD ~ Electronically Signed By: ARVIN GANN MD 04/25/24 1649 PATIENT NAME: VAN ALAVREZ DISCHARGE SUMMARY DATE OF : 55 REPORT #: [id number] PHYSICIAN: ARVIN GANN MD PCP: NO PRIMARY CARE PHYSICIAN REPORT IS CONFIDENTIAL AND NOT TO BE RELEASED WITHOUT AUTHORIZATION
--- NOTE | 2024-04-27 15:47 | PATH ---
[facility] [address], [place] [address] Signed SPECIMEN(S): A MID PORTION SMALL BOWEL SPECIMEN SOURCE: A. MID PORTION SMALL BOWEL CLINICAL HISTORY: Diaphragmatic hernia of small bowel FINAL PATHOLOGIC DIAGNOSIS: Mid portion of small bowel: - Segment of benign bowel with central bowel mucosal necrosis and diffuse bowel wall hemorrhage. - Incidental lymph node with hemorrhagic stroma and reactive features. JVR:clv MICROSCOPIC EXAMINATION: Histologic sections of all submitted blocks are examined by light microscopy. These findings, together with the gross examination, support the pathologic diagnosis. GROSS DESCRIPTION: The specimen, labeled and designated "Dontae, midportion of small bowel," is received fresh and placed in formalin and consists of and unoriented and looped segment of small intestine that is received stapled and sutured at both ends. The specimen measures 43.5 cm in length by 2.5-3.5 cm in diameter. Running along the length of the specimen is scant to moderate, attached mesenteric tissue which measures up to 4.5 cm in thickness. The serosa of the bowel is diffusely dusky, but the staple margins are grossly viable. Fully opening the specimen demonstrates a diffusely shaggy and slightly edematous mucosa that is unremarkable for any discrete masses. The bowel wall ranges from 0.1-0.4 cm in thickness and displays intramural hemorrhage throughout. Sectioning through the attached mesentery demonstrates heavy congestion throughout. Surgical First Assistant sections are submitted in A1-A3. Cassette Summary: (A1) both staple line margins, en face (A2-A3) bowel wall, full-thickness, to include congested mesentery in A3 AM (under the direct supervision of a pathologist) The Gross Description was prepared using a voice recognition system. The report PATIENT NAME: VAN ALVAREZ PATHOLOGY DATE OF : 55 REPORT #: [id number] PHYSICIAN: RAN PATHOLOGY PCP: NO PRIMARY CARE PHYSICIAN REPORT IS CONFIDENTIAL AND NOT TO BE RELEASED WITHOUT AUTHORIZATION [facility] [address], [place] [address] Signed was reviewed for accuracy; however, sound-alike word errors, addition and/or deletions may occur. If there is any question about this report, please contact Client Services. PERFORMING LABORATORY: Technical component was performed by [facility], [address] [place] [address] (CLIA# [id number]). Professional interpretation was performed by [facility] - [facility], [address] [place] [id number] (CLIA#: [id number]). Diagnostician: Hesham Sarmiento MD Pathologist Electronically Signed 04/27/2024 Copies: ~ PATIENT NAME: VAN ALVAREZ PATHOLOGY DATE OF : 55 REPORT #: [id number] PHYSICIAN: RAN PATHOLOGY PCP: NO PRIMARY CARE PHYSICIAN REPORT IS CONFIDENTIAL AND NOT TO BE RELEASED WITHOUT AUTHORIZATION
== END 2024-04-23 13:45 | disposition home or self-care (01) | DRG 326 ==
LOC: ED 09:22 → MS 13:11 → CCU 13:11 → MS 04-22 06:15
PROVIDERS: Emergency Medicine; Nurse Anesthetist, Certified Registered; ADMIT Surgery; ATTEND Surgery
PROC: 0DB80ZZ Excision of Small Intestine, Open Approach (ICD-10-PCS; 2024-04-20)
PROC: 0BQT0ZZ Repair Diaphragm, Open Approach (ICD-10-PCS; principal; 2024-04-20 14:45)
DX: K44.1 Diaphragmatic hernia with gangrene (principal); K55.029 Acute infarction of small intestine, extent unspecified; Z85.51 Personal history of malignant neoplasm of bladder; Z85.01 Personal history of malignant neoplasm of esophagus; Z90.49 Acquired absence of other specified parts of digestive tract
CPT/HCPCS: 00840; 36415; 51702; 71045; 74177; 80048; 80053; 81001; 83690; 85025; 86850; 86900; 86901; 87077; 87088; 87186; 88307; 93005; 93010; 99285-25; A9270; J0690; J1100; J1170; J1644; J1885; J2001; J2371; J2405; J2704; J3010; J3490; J7030; J7121; Q9967

== ENCOUNTER 2024-04-26 07:46 | Inpatient (IN) | payer MEDICARE, BC ==
[~2024-04-26] VITALS: Ht 172.7 cm; Wt 67.4 kg
[2024-04-26] VITALS (15 sets, daily range): BP systolic 104–144; BP diastolic 68–94
--- NOTE | ~2024-04-26 | DS ---
[facility] [address], [place] [address] Draft ADMISSION DATE: 04/26/2024 DISCHARGE DATE: 05/04/2024 REASON FOR ADMISSION: Small bowel obstruction. HISTORY OF PRESENT ILLNESS: This 69-year-old white man is from [place]. He had been admitted on April 20, 2024 with an incarcerated closed-loop obstruction through the defect in the left hemidiaphragm. Eight days prior to current evaluation, he underwent operation, which included reduction of the segment of bowel from the left hemithorax and repair of the diaphragmatic defect and resection of 2 feet of frankly necrotic small bowel. A idls-lf-edco isoperistaltic anastomosis was performed after resection of this necrotic small bowel. The previous site of his esophageal hiatus had no sign of associated hernia and the previous repair appeared to be intact. Of special note, three years ago, he underwent esophagectomy for esophageal carcinoma at [facility]. Resection included a gastric pull-up procedure for reconstruction. One year ago in [place], [place], he underwent emergency operation for a paraconduit hernia (hernia alongside the esophageal hiatus) associated with a gastric pull-up and the incarcerated viscus was herniated colon. Repair included medialization of the left crura around this stomach forming a relaxing incision which had been made in the left hemidiaphragm, no doubt accounting for his more recent herniated small bowel. The patient presented to the emergency room at [place], [place] on the day of current admission and is evaluated by the emergency room physician, Dr. Gonzales (telephone #[phone]). He had complaints of abdominal pain and distention. A CT scan was performed approximately 6 a.m. showing markedly dilated loops of small bowel and what was thought to be a transition point in the left lower quadrant and marked distention of the gastric tube and some residual free air from recent laparotomy. The patient was accepted in transfer from [place] for further admission for my evaluation and treatment. PERTINENT PHYSICAL EXAMINATION: GENERAL: At the time of admission shows a pleasant white man, who did not look systemically toxic. VITAL SIGNS: Currently temperature of 97.1, pulse 63, blood pressure 139/89. NECK: Trachea midline. CHEST: Clear with normal respiratory excursion. ABDOMEN: Mildly distended but not massively so. There is no focal tenderness. EXTREMITIES: Showed no clubbing, cyanosis, or edema. PATIENT NAME: VAN ALVAREZ DISCHARGE SUMMARY DATE OF : 55 REPORT #: [id number] PHYSICIAN: ARVIN GANN MD PCP: MELY GARCIA REPORT IS CONFIDENTIAL AND NOT TO BE RELEASED WITHOUT AUTHORIZATION [facility] [address], [place] [address] Draft LABORATORY STUDIES: Showed a white count of 2.71 with hematocrit of 35.5, platelets 255,000. Lactic acid level normal. Electrolytes normal overall. Creatinine was elevated at 1.67. Lipase level 92, band forms apparently 35%. HOSPITAL COURSE: The patient had been accepted in transfer with small-bowel obstruction and intra-abdominal free air obviously concerning for possible perforated bowel. His clinical situation was not consistent with peritonitis particularly and therefore he did not undergo immediate operation. A nasogastric tube had been placed in [place], which allowed for decompression of the dilated stomach. Nasogastric tube could not be advanced very far and the tip of it was located just below the level of the clavicles on upright chest x-ray. Nevertheless, it was not functioning well. 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 The neobladder is composed of a segment of small bowel itself. He self catheterizes. A Cortes catheter was placed. It is noted that he had a urinary tract infection identified on his previous hospitalization and had been on antibiotic Cipro for E coli related urinary tract infection. Upon review of his clinical history, it appeared that he had ingested possibly high fiber diet which may have accounted for what appeared to be a small bowel obstruction at the site of the anastomosis. We are mindful that his stomach does not have the intrinsic ability for "churning" but rather is an esophageal conduit and therefore his diet of relatively solid and fibrous food may have accounted for obstruction at the recent anastomosis. He was observed with continuous nasogastric tube decompression showing relatively high outputs of fluid. Plain abdominal x-rays continue to show markedly dilated small bowel loops. A CT scan was repeated in particular relation to the free air that was noted on the original CT in [place] showing essentially no free air and resorption of the free air that was present. There was a minimal amount of left pleural fluid as well. The patient did have episodic fever, though white count was very low. Initiation of antibiotic meropenem was undertaken on the basis of his positive urinary culture from last admission, which had shown E coli and strep pneumoniae. Both pathogens were sensitive to meropenem. It was deemed most likely that his obstruction was at the anastomotic site, probably related to edema and without sign of abscess or free perforation. He did not have significant abdominal pain particularly, but as he did not have clinical resolution of his obstruction or even progress towards that end, I recommended exploration. He underwent abdominal exploration on April 28, 2024, He showed no sign of PATIENT NAME: VAN ALVAREZ DISCHARGE SUMMARY DATE OF : 55 REPORT #: [id number] PHYSICIAN: ARVIN GANN MD PCP: MELY GARCIA REPORT IS CONFIDENTIAL AND NOT TO BE RELEASED WITHOUT AUTHORIZATION [facility] [address], [place] [address] Draft intra-abdominal abscess but there was some inflammatory fluid within the abdominal cavity. There were some interloop adhesions but the actual obstruction appeared to be at the anastomosis as predicted. The anastomosis was a jrko-rr-zgge isoperistaltic anastomosis, but it showed extreme inflammation and edema at that site, no doubt accounting for the obstruction. Operation consisted of decompression of the proximal bowel contents, segmental resection of the anastomosis and another gnlv-dr-vzfc functional end-to-end stapled enteroenterostomy using 80 cm MAMADOU stapling device. The nasogastric tube was allowed to remain in place postoperatively and continuous decompression undertaken. He was initiated on TPN, having started central venous catheter in the operating room as well. He is maintained in n.p.o. status other than liquids for comfort until bowel function was noted as manifest by flatus. Once assured bowel function had returned, he was begun on a clear liquid diet after removal of the nasogastric tube, which he tolerated well and advanced to full liquids and ultimately a mechanical soft diet. By the time of discharge, he is ambulating well. He is doing self catheterization as per his usual outpatient routine. He has had several bowel movements and wound is healing well. He is discharged home with strict instructions for a low-fiber diet; dietary counseling and instruction has been given to the patient. Additionally, he is recommended to lift no more than 20 pounds for the next four weeks. He will call next week to set up an appointment and follow up with me for about 4 to 6 weeks. DISCHARGE MEDICATIONS: Will include. 1. Levaquin 500 mg p.o. daily, #10. 2. Oxycodone 5 mg 1-2 p.o. q.6 hours as needed for severe pain, #10. 3. Tylenol 500 mg two tablets p.o. q.6 hours as needed for pain, #60. 4. Magnesium oxide 400 mg p.o. daily (recent hypomagnesemia resistant to improvement) dispense #30, refill 0. 5. He will continue his outpatient current medications of nicotine patch 21 mg topical daily. 6. Famotidine 20 mg p.o. q.12 hours. 7. Flomax 0.4 mg p.o. daily. DISCHARGE DIAGNOSES: 1. Acute small bowel obstruction following segmental bowel resection and primary anastomosis; status post exploration of abdomen after active observation April 28, PATIENT NAME: VAN ALVAREZ DISCHARGE SUMMARY DATE OF : 55 REPORT #: [id number] PHYSICIAN: ARVIN GANN MD PCP: MELY GARCIA REPORT IS CONFIDENTIAL AND NOT TO BE RELEASED WITHOUT AUTHORIZATION [facility] [address], [place] [address] Draft 2023. Segmental resection of small bowel at area of anastomosis and qctu-cc-trxy 80 cm functional end-to-end anastomosis, irrigation of abdomen. 2. Recent history of laparotomy April 20, 2024 with reduction of incarcerated close loop of bowel through left diaphragm defect with segmental small bowel resection and wgto-kt-gxgx isoperistaltic anastomosis. 3. Distant history of esophagectomy for malignancy at [facility] three years ago with gastric pull-up reconstruction. 4. History of paraconduit incarcerated hernia (colon) undergoing repair in [place], [place] including left hemidiaphragm relaxing incision for closure of diaphragmatic hiatus. 5. 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 6. Anxiety disorder. 7. Tobacco dependency. 8. Episodic alcohol abuse. MD TRISH Lainez/EMELYL /[id number] cc: Dr. Gonzales Copies: ~ PATIENT NAME: VAN ALVAREZ DISCHARGE SUMMARY DATE OF : 55 REPORT #: [id number] PHYSICIAN: ARVIN GANN MD PCP: MELY GARCIA REPORT IS CONFIDENTIAL AND NOT TO BE RELEASED WITHOUT AUTHORIZATION
[~2024-04-26 07:46] MED LIST: ACETAMINOPHEN500 MG PO; CIPROFLOXACIN500 MG PO; FAMOTIDINE20 MG PO; FLOMAX0.4 MG PO; IBUPROFEN600 MG PO; NICOTINE1 EAC2 TD; OXYCODON-ACETA1 EAC2 PO
--- NOTE | 2024-04-26 09:15 | NUR ---
69 year old male patient admitted to ccu VIA STRETCHER FROM [facility] UNDER DR. GANN SERVICE. REPORT RECEIVED FROM LONNY IN THE ER AT [facility], UPDATE GIVEN BY THE [facility] CREW. UPON ADMIT TO CCU PATIENT IS AWAKE AND ALERT DENIES PAIN. PATIENT WAS DISCHARGED FROM [facility] APRIL 22, 2024, STATUS POST SMALL BOWEL RESECTION. PATIENT HAS HX OF ESOPHAGEAL CA, BLADDER CA, HAD AN ESOPHAGECTOMY 3 YRS AGO, RUDY BLADDER SEVERAL YEARS AGO. PATIENT STATES HE WENT TO [facility] THIS CRITICAL CARE TRANSPORT NURSE HE DEVELOPED SEVERE ABD PAIN. HAS NOT HAD A BM SINCE LAST WEDNESDAY. ABD INCISION IS CLEAN DRY WITH OLD DRY BLOOD AT DISTAL PORTION OF INCISION WITH STERI STRIPS IN PLACE. PATIENT WAS GIVEN A LITER OF FLUID,TYLENOL 1000 MG IV, ZOSYN,DILAUDID, ZOFAN AND NG TUBE. PRIOR TO TRANSFER HERE, NG OUTPUT WAS 700 ML. UPON ADMIT, PATIENT DENIES PAIN, NAUSEA. IVF LR STARTED AT 100 ML/HR. ADMISSION PROCESS STARTED.
--- NOTE | 2024-04-26 10:10 | NUR ---
DR. GANN HERE TO SEE PATIENT. CXR ORDERED.
--- NOTE | 2024-04-26 11:00 | NUR ---
DR. GANN TALKING WITH PATIENT ABOUT POC. CURRENTLY BOWEL REST, CONTINUE NGT, IVF, CLEAR LIQUIDS FOR ORAL COMFORT. HEBERT CATH PLACED WITH RETURN OF SUHA URINE. PATIENT STRAIGHT CATH SELF TID, HAS RUDY BLADDER. DENIES PAIN OR NAUSEA.
[2024-04-26] MEDS ORDERED: LACTATED RINGER'S 1,000 ML IV ONE (11:45)
[2024-04-26] MEDS ORDERED: ondansetron HCL 4 MG/2 ML VIAL IV PRN (11:45)
[2024-04-26] MEDS ORDERED: LACTATED RINGER'S 1,000 ML IV SCH (11:45)
[2024-04-26] MEDS ORDERED: KETOROLAC TROMETHAMINE 30 MG/ML VIAL IV PRN (11:45)
[2024-04-26] MEDS ORDERED: FAMOTIDINE 20 MG/ 2 ML VIAL IV SCH (12:09)
[2024-04-26] MEDS ORDERED: MENTHOL/CETYLPYRD CL 1 LOZ LOZENGE PO PRN (12:15)
[2024-04-26] MEDS ORDERED: LIDOCAINE 2% VISCOUS 6 ML SYR TOP ONE (12:30)
[2024-04-26] MEDS ORDERED: KETOROLAC TROMETHAMINE 15 MG/ML VIAL IV PRN (12:45)
[2024-04-26 12:56] LABS: HEMATOCRIT 33.4 % (35.0-50.0); HEMOGLOBIN 10.7 g/dL (12.0-18.0); MCH 29.1 (27-36); MCHC 32.2 g/dl (30-36); MCV 90.3 fl (81-99); PLATELET COUNT 244 K/uL (140-440); RDW 14.8 (10.5-15.0)
--- NOTE | 2024-04-26 13:00 | NUR ---
LR BOLUS HUNG PER ORDERS.
[2024-04-26 13:09] LABS: ALBUMIN 2.4 g/dL (3.4-5.0); ALBUMIN/GLOBULIN RATIO 0.6 (1.1-2.4); ANION GAP 10.6 (7-21); BILIRUBIN, TOTAL 0.4 ng/dL (0.2-1.0); CALCIUM 8.1 mg/dL (8.5-10.1); CREATININE, SERUM 1.5 mg/dL (0.70-1.30); MAGNESIUM 2.2 mg/dL (1.8-2.4); POTASSIUM 4.6 mmol/L (3.5-5.1); PROTEIN, TOTAL 6.4 g/dL (6.4-8.2)
[2024-04-26 13:24] LABS: BANDS, MANUAL DIFF 8; EOSINOPHILS, MANUAL DIFF 2; LYMPHOCYTES, MANUAL DIFF 30; MONOCYTES, MANUAL DIFF 4; NEUTROPHILS, MANUAL DIFF 56
--- NOTE | 2024-04-26 13:30 | NUR ---
BOLUS CONT TO INFUSE. PATIENT SLEEPING, HEBERT CATH PATENT.
--- NOTE | 2024-04-26 13:38 | NUR ---
medications reconciled
--- NOTE | 2024-04-26 13:57 | NUR ---
VISITED DURING SPIRITUAL CARE ROUNDS. PT APPEARED TO BE SLEEPING. DID NOT DISTURB. PROVIDED PRAYER.
--- NOTE | 2024-04-26 14:05 | NUR ---
AWAKE, C/O LOWER MID ABD PAIN. RATES 6/. TORDAL 15 MG IV GIVEN. NGT TO LIS, IRRIGATED WITH RETURN OF LARGE AMOUNT OF LIGHT BROWN STOMACH CONTENTS, SUCTION INCREASED TO MCS. WITH DECOMPRESSION AND TORDAL, PATIENT STATES HE FEELS MUCH BETTER.
--- NOTE | 2024-04-26 14:15 | NUR ---
DR. GANN UPDATED ON PATIENT LABS AND ABD PAIN, DR GANN AWARE OF NEED TO INCREASE NGT SUCTION AND IRRIGATION. ORDERS RECEIVED FOR KUB IN AM. IVF NOW INFUSING AT 85 ML/HR. WHEN IRRIGATING NGT, PATIENT WILL EXPECTORATE SMALL AMOUNT OF CONTENTS. DR. GANN AWARE.
--- NOTE | 2024-04-26 14:53 | NUR ---
SITTING UP IN BED. STATES HE HAS HAD NO CHANGES SINCE PREVIOUS ADMISSION AND HE HAS NO NEEDS FROM CASE MANAGEMENT AT THIS TIME. STATES HE WILL NOTIFY STAFF IF THAT CHANGES.
[2024-04-26] MEDS ORDERED: NICOTINE 21 MG/24 HR 1 EA TDSY TD SCH (15:11)
--- NOTE | 2024-04-26 16:30 | NUR ---
DR. GANN HERE TO SEE PATIENT. NICOTINE PATCH APPLIED TO LEFT SHOULDER.
[2024-04-26] MEDS ORDERED: LORazepam 2 MG/ML VIAL IV PRN (16:45)
[2024-04-26] MEDS ORDERED: MORPHINE SULFATE 4 MG/ML VIAL IV PRN (18:30)
--- NOTE | 2024-04-26 18:40 | NUR ---
ATIVAN 1 MG IV GIVEN, PATIENT SOMEWHAT ANXIOUS.
--- NOTE | 2024-04-26 19:30 | NUR ---
REPORT RECEIVED FROM DAY SHIFT RN. PATIENT RESTING IN BED. NGT IN PLACE AND FUNCTIONING WNL. NOTED BORWNISH COLORED DRAINAGE FROM NGT. URINE DRAINAING INTO HEBERT CATHERTER. NO NEEDS AT THIS TIME. CALL LIGHT WITHIN REACH.
--- NOTE | 2024-04-26 20:17 | NUR ---
PATIENT RESTING IN BED WITH EYES CLOSED. VSS, AFEBRILE AT THIS TIME. LUNGS WITH NOTED EXPIRATORY WHEEZING IN UPPER BILATERAL LOBES AND LOWER LEFT LOBE, DIM RIGHT LOWER LOBE. OXYGEN SAT WNL ON 2L O2 VIA NC. ALERT AND ORIENTED X 3. NGT FUNCTIONING WNL, DRAINAING BROWNISH COLORED CONTENTS. HEBERT CATH DRAINING WITH NO ISSUES. BOWEL TONES HYPOACTIVE THROUGHOUT, ABD FIRM NON TENDER. MIDLINE INCISION WITH STERI STRIPS IN PLACE AND NO NOTED S/SX OF INFECTION. PATIENT DENIES ANY NAUSEA OR PAIN AT THIS TIME. HS MEDICATIONS GIVEN. NO FURTHER NEEDS. CALL LIGHT WITHIN REACH.
--- NOTE | 2024-04-26 22:00 | NUR ---
PATIENT RESTING IN BED WITH EYES CLOSED. RESPIRATIONS EVEN AND UNLABORED. ALL TUBES WNL. CALL LIGHT WITHIN REACH.
--- NOTE | 2024-04-26 23:02 | NUR ---
PRN GIVEN FOR PAIN. BOWEL TONES ABSENT IN RUQ, HYPOACTIVE THREE OTHER QUADRANTS. DENIES ANY NAUSEA, OR PASSING OF GAS. NGT FUNCTIONING WNL. LUNG SOUNDS WITH EXPIRATORY WHEEZES NOTED. IVF INFUSING WITH NO ISSUES. PATIENT REQUESTING ICE CHIPS. ICE CHIPS GIVEN. NO FURTHER NEEDS AT THIS TIME. CALL LIGHT WITHIN REACH.
[2024-04-27] VITALS (18 sets, daily range): BP systolic 103–136; BP diastolic 69–89
--- NOTE | 2024-04-27 00:58 | NUR ---
IV PUMP ALARMING. NEW BAG OF FLUIDS HUNG.IV SITE REMAINS PATENT. PATIENT RESTING WITH EYES CLOSED RESPIRATIONS EVEN AND UNLABORED. CALL LIGHT WITHIN REACH.
--- NOTE | 2024-04-27 02:30 | NUR ---
IV PUMP ALARMING. OCCLUSION ON PATIENT SIDE. ARM REPOSITIONED. NOTED COUGH, PRODUCTIVE. LUNGS DIM THROUGHOUT. PATIENT REMAINS ON 2L O2 VIA NC. ENCOURAGED PATIENT TO USE IS. PATIENT OXYEGN SATS DOWN TO 87% WHILE USING IS. PATIENT RECOVERED WELL AFTER DONE WITH IS. NO FURTHER NEEDS. CALL LIGHT WITHIN REACH.
--- NOTE | 2024-04-27 04:45 | NUR ---
NOTED COUGHING. PATIENT COUGHING UP BROWN LIQUID, TOTAL AMOUNT FOR THIS SHIFT 200CC. NGT TUBE IRRIGATED. LUNGS DIM THROUGHOUT. BOWEL TONES HYPOACTIVE. DENIES ANY NAUSEA. DENIES ANY PASSING OF GAS. ABD FIRM NON TENDER, DISTENDED. MIDLINE INCISION REMAINS WNL STERI STRIPS INTACT NO S/SX OF INFECTION. HEBERT DRAINING WITH NO ISSUES OR CONCERNS. DENIES ANY PAIN AT THIS TIME. VSS. CALL LIGHT WITHIN REACH.
[2024-04-27 05:19] LABS: HEMATOCRIT 33.6 % (35.0-50.0); MCH 29.4 (27-36); MCHC 32.7 g/dl (30-36); MCV 89.9 fl (81-99); PLATELET COUNT 256 K/uL (140-440); RBC 3.74 M/ul (4.3-5.7); RDW 15.1 (10.5-15.0)
[2024-04-27 05:34] LABS: BANDS, MANUAL DIFF 28; EOSINOPHILS, MANUAL DIFF 4; LYMPHOCYTES, MANUAL DIFF 23; MONOCYTES, MANUAL DIFF 12; NEUTROPHILS, MANUAL DIFF 33
[2024-04-27 05:39] LABS: ALBUMIN 2.2 g/dL (3.4-5.0); ALBUMIN/GLOBULIN RATIO 0.56 (1.1-2.4); ANION GAP 8.9 (7-21); BILIRUBIN, TOTAL 0.5 ng/dL (0.2-1.0); BUN/CREATININE RATIO 20.89 (6.0-28.6); CALCIUM 8.1 mg/dL (8.5-10.1); CREATININE, SERUM 1.34 mg/dL (0.70-1.30); POTASSIUM 4.9 mmol/L (3.5-5.1); PROTEIN, TOTAL 6.1 g/dL (6.4-8.2)
--- NOTE | 2024-04-27 06:30 | NUR ---
NOTED INCREASED ANXIETY AND FRUSTRATION. PRN GIVEN PER PATIENT REQUEST.
--- NOTE | 2024-04-27 07:30 | NUR ---
REPORT RECEIVED FROM Diana RICHARDSON RN. PATIENT IS SLEEPING WITH HOB ELEVATED. IVF INFUSING, HEBERT CATH PATENT, O2 IN PLACE. NO DISTRESS NOTED.
--- NOTE | 2024-04-27 08:00 | NUR ---
ASSESSEMENT DONE. CHEST XRAY DONE. TALKED WITH PATIENT ABOUT POC FOR THE DAY. PATIENT IS SOMEWHAT ANXIOUS ABOUT CURRENT HEALTH. REASSURANCE GIVEN. NGT IRRIGATED WITH 20 ML OF NS, WHEN NGT IRRIGATED, PATIENT THEN AGAIN WILL EXPECTORATE SECRETIONS. PATIENT FRUSTRATED BY THIS. HAS MILD RLQ PAIN. ABD IS FIRM. O2 [address]
--- NOTE | 2024-04-27 08:43 | NUR ---
TORDOL 15 MG IV GIVEN FOR ABD DISCOMFORT.
--- NOTE | 2024-04-27 09:20 | NUR ---
DR. GANN HERE TO SEE PATIENT. HE WILL REVIEW ABD XRAY. DR. GANN AWARE OF TEMP-101.6. NO FURTHER ORDERS AT THIS TIME.
--- NOTE | 2024-04-27 09:32 | NUR ---
UR CLINICAL REVIEW: 2 MN TEJA, MEETS INPATIENT MEDICARE INPT ([facility])- 04/26/24 @ 1210 ORDER MATCHES STATUS NO AUTH REQUIRED PER MEDICARE RULES PLAN TO DC TO HOME WHEN STABLE.
--- NOTE | 2024-04-27 10:30 | NUR ---
CHEST XRAY DONE PER ORDERS.
--- NOTE | 2024-04-27 10:30 | NUR ---
VISITED DURING SPIRITUAL CARE ROUNDS. PT EXHIBIT VERY LITTLE ANXIETY, EXPRESSED UNDERSTANDING OF PHYSICAL CONDITION. DRUG REGULATORY AFFAIRS SPECIALIST PROVIDED SUPPORTIVE PRESENCE, FACILITATED INTERACTION WITH THERAPY ANIMAL, PROVIDED HOSPITALITY, PRAYER. PT EXPRESSED APPRECIATION.
--- NOTE | 2024-04-27 11:41 | NUR ---
Continues to deny needs for DC to home.
--- NOTE | 2024-04-27 11:50 | NUR ---
TO CT VIA W/C, THIS RN WITH PATIENT.
--- NOTE | 2024-04-27 12:22 | NUR ---
ZOFRAN 4 MG IV GIVEN FOR NAUSEA. HEBERT CATH IRRIGATED NO URINE NOTED IN TUBING, HEBERT IRRIGATED FREELY WITH RETURN OF SUHA URINE WITH SEDIMENT.
--- NOTE | 2024-04-27 13:00 | NUR ---
SLEEPING, NO DISTRESS NOTED.
--- NOTE | 2024-04-27 13:26 | NUR ---
DECREASED O2 TO 40%
[2024-04-27] MEDS ORDERED: MEROPENEM 1,000 MG in SODIUM CHLORIDE 0.9% 100 ML IV SCH (14:00)
--- NOTE | 2024-04-27 14:00 | NUR ---
DR. GANN AWARE OF CT RESULTS, NO FURTHER ORDERS RECEIVED AT THIS TIME. PATIENT AND PATIENT SON UPDATED ON POC.
--- NOTE | 2024-04-27 15:15 | NUR ---
AWAKE, DENIES PAIN. IS CALM. NGT PATENT, ANUP PATENT,IVF INFUSING, O2 2 L NC ON. TEMP 100.0 AX. HOB ELEVATED TO 37 DEGREES.
--- NOTE | 2024-04-27 18:10 | NUR ---
PATIENT IS SITTING AT BEDSIDE. ASSISTED PATIENT BACK TO BED. FOLLOWING COMMANDS. DENIES PAIN.
--- NOTE | 2024-04-27 18:33 | NUR ---
RESTING WITH HOB ELEVATED.
--- NOTE | 2024-04-27 18:44 | NUR ---
HERE TO SEE PATIENT. NO CHANGES.
--- NOTE | 2024-04-27 19:30 | NUR ---
handoff report received from ROBERTO florence. pt lying awake in bed, no needs at this time. call light within reach.
--- NOTE | 2024-04-27 20:24 | NUR ---
PT RESTING IN BED WITH EYES CLOSED. PT EASILY AWAKENS TO VERBAL STIMULI. PT IS ALERT AND ORIENTED, ANSWERS QUESTIONS APPROPRIATLY. PT STATES HE IS HAVING 2/10 ABDOMINAL PAIN AND IS REQUESTING SOME PAIN MEDICATION. PT DENIES FEELING NAUSEOUS AND NO SOB. PT INCISION IS COVERED WITH STERI STRIPS, NO NEW DRAINAGE NOTED. PT HEBERT CATH IS INTACT AND DRAINING CLEAR YELLOW URINE. PT NG IS INTACT. PT IV SITES ARE WNL. NO FURTHER NEEDS AT THIS TIME. CALL LIGHT WITHIN REACH.
--- NOTE | 2024-04-27 23:00 | NUR ---
PT RESTING IN BED WITH EYES CLOSED. RESPIRATIONS EVEN AND UNLABORED. CALL LIGHT WITHIN REACH.
[2024-04-28] VITALS (17 sets, daily range): BP systolic 91–134; BP diastolic 63–79
--- NOTE | 2024-04-28 00:15 | NUR ---
WHILE IN ROOM PT AWAKENS. PT STATES HE HAD A WEIRD DREAM. PT STATES HE HAS NO PAIN. PT REMAINS ON 2L NC, SATURATING WELL. HEBERT CATH PATENT. NG TUBE IN PLACE, ON LOW INT. SUCTION. STERI STRIPS STILL INTACT WITH NO NEW DRAINAGE NOTED. PT HOB ELEVATED. VITAL SIGNS REMAIN STABLE. PT HAS NO NEEDS AT THIS TIME. CALL LIGHT WITHIN REACH. BED IN LOW AND LOCKED POSTION, WITH BED ALARM ON.
--- NOTE | 2024-04-28 02:08 | NUR ---
pt resting in bed with eyes closed, respirations even and unlabored. pt vss. call light within reach.
--- NOTE | 2024-04-28 03:58 | NUR ---
pt used call light requesting a warm blanket. warm blanket provided. no further needs at this time. call light within reach. bed in low and locked position, bed alarm on.
--- NOTE | 2024-04-28 05:10 | NUR ---
LAB IN ROOM. PT AWAKE, DENIES ANY PAIN. HEBERT CATH IS PATENT AND DRAINING YELLOW URINE. PT NG TUBE INTACT AND REMAINS ON LOW INT. SUCTION. VITAL SIGNS STABLE. PT REMAINS ON 2L NC WITH SATURATION AT 94%. PT HAS NO NEEDS AT THIS TIME. CALL LIGHT WITHIN REACH. BED IN LOW AND LOCKED POSTION WITH BED ALARM ON.
[2024-04-28 05:19] LABS: HEMATOCRIT 32.4 % (35.0-50.0); HEMOGLOBIN 10.5 g/dL (12.0-18.0); MCH 29.1 (27-36); MCHC 32.3 g/dl (30-36); MCV 90.1 fl (81-99); PLATELET COUNT 265 K/uL (140-440); RDW 15.2 (10.5-15.0)
[2024-04-28 05:34] LABS: ALBUMIN 1.9 g/dL (3.4-5.0); ALBUMIN/GLOBULIN RATIO 0.51 (1.1-2.4); ANION GAP 9.9 (7-21); BANDS, MANUAL DIFF 18; BILIRUBIN, TOTAL 0.6 ng/dL (0.2-1.0); BUN/CREATININE RATIO 23.96 (6.0-28.6); CALCIUM 7.7 mg/dL (8.5-10.1); CREATININE, SERUM 1.21 mg/dL (0.70-1.30); LYMPHOCYTES, MANUAL DIFF 12; MONOCYTES, MANUAL DIFF 22; NEUTROPHILS, MANUAL DIFF 48; POTASSIUM 4.9 mmol/L (3.5-5.1); PROTEIN, TOTAL 5.6 g/dL (6.4-8.2)
--- NOTE | 2024-04-28 06:00 | NUR ---
PT STATES 5/10 PAIN IN HIS JAW AND IS REQUESTING PAIN MEDICATION. PRN PAIN MEDICATION GIVEN PER EMAR. NO FURTHER NEEDS AT THIS TIME.
--- NOTE | 2024-04-28 06:38 | NUR ---
PT TAKEN TO X-RAY WITH THIS RN AND GUILLAUME MEJIA VIA WHEELCHAIR. PT STEADY ON FEET WITH TRANSFER. PT SEEMS TO BE MILDLY IRRITABLE DURING INTERACTION. PT IS IMPULSIVE WITH MOVEMENTS AND HAS TO BE REDIRECTED AT TIMES, BUT FOLLOWS COMMANDS APPROPRIATELY. PT VITAL SIGNS REMAIN STABLE. PT BACK TO ROOM AND IN BED, WARM BLANKET PROVIDED. NO FURTHER NEEDS AT THIS TIME. CALL LIGHT WITHIN REACH. BED IN LOW AND LOCKED POSTION, WITH BED ALARM ON.
--- NOTE | 2024-04-28 08:18 | NUR ---
REPORT REC'D FROM SALESPERSON STEREO EQUIPMENT AND PLAN OF CARE RESUMES. PATIENT RESTING UPON INITIAL ASSESSMENT BUT AWAKENS EASILY AND STATES HIS JAW CONTINUES TO HURT FROM THE NGT THAT HE HAS INP LACED IN LEFT NARE. CONTENTS DRAINING ARE MCDANIEL/ORANGISH AND SOMEWHAT THICK IN NATURE. PT REQUESTING PAIN MEDICATION. PT STATES ABD DISCOMFORT IS MINIMAL. PT'S ABDOMEN IS ONLY MILDLY DISTENDED, WITH MIDLINE INCISION WELL APPROX WITH STERI STRIPS AND OLD DRAINAGE BLOOD NOTED ON INCISION. BOWEL SOUNDS ARE ACTIVE. SKIN IS WARM AND DRY. OXYGEN IS 99-100% ON 2L AND THIS WAS TURNED DOWN TO 1 L. IVF CONTINUE AT 85 ML/HR AND IV MERREM INFUSING WELL. DISCUSSED PLAN OF CARE AND PLAN TO GET PATIENT UP AND MOVING MORE TODAY.
--- NOTE | 2024-04-28 10:28 | NUR ---
PATIENT RESTING AT THIS TIME AND HAS BEEN. HR IN THE 50s. SP02 IS 99% ON 1 L AND WILL CONTINUE TO BE TITRATED DOWN.
--- NOTE | 2024-04-28 11:45 | NUR ---
Pleasant visit with Zeyad. He denies needs and is reading his books. States he just spoke with Dr. Wilson and waiting to see if edema will resolve on its own. He denies any needs at this time. He states his will be over to see him from [facility] today. I spoke with Dr. Wilson and he plans on taking pt to surgery today. No plan for dc today.
--- NOTE | 2024-04-28 12:03 | HP ---
[facility] [place] [facility] [address], [place] [address] Signed ADMISSION DATE: 04/26/2024 REASON FOR ADMISSION: Small bowel obstruction, questionable residual free air of abdomen. HISTORY OF PRESENT ILLNESS: This 69-year-old white man is known to me recently. He was admitted on April 20, 2024 with a incarcerated closed-loop bowel obstruction through a defect in the left hemidiaphragm. Eight days ago, he underwent operation, which included reduction of the segment of bowel from the left hemithorax and repair of the diaphragmatic defect and found to have about 2 feet of frankly necrotic small bowel. A [id number] isoperistaltic anastomosis was performed after resection of the necrotic small bowel. 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 Of special note, three years ago, he underwent esophagectomy at [facility] and resection included a gastric pull-up procedure. 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 So as to medialize the crura around the stomach and repair that defect, a relaxing incision had been made in the left hemidiaphragm, which no doubt accounted for the more recent herniated small bowel. The patient presented to the [facility] today and was evaluated by the emergency room physician, Dr. Gonzales (telephone [phone]) as the patient had complaints of abdominal pain and distention. A CT scan was performed at approximately 6:00 a.m., which showed markedly dilated loops of small bowel and what was thought to be a transition point in the left lower quadrant area. Marked distention of the gastric tube was noted as well. I was called by her and accepted the patient in transfer. I did advise the nasogastric tube be placed and it was and it has been draining enteric fluid. Notably, the patient does not feel particularly severely ill, does not have severe unremitting abdominal pain in any way. LABORATORY STUDIES: Showed a white count that was normal (actually below normal at 2.71 with hematocrit of 35.5 and a platelet count of 255,000. His lactic acid level was normal. Electrolytes were normal overall. Potassium 4.5, creatinine 1.67, most recent hospitalization creatinine 1.20, lipase level 92, band forms apparently 35%. A CT scan was interpreted Electronically Signed By: ARVIN GANN MD 04/28/24 1203 PATIENT NAME: VAN ALVAREZ HISTORY AND PHYSICAL DATE OF : 55 REPORT #: [id number] PHYSICIAN: ARVIN GANN MD PCP: MELY GARCIA REPORT IS CONFIDENTIAL AND NOT TO BE RELEASED WITHOUT AUTHORIZATION [address] [address] Signed as consistent with high grade small bowel obstruction with a transition point in the left hemipelvis and some pneumoperitoneum, unable to exclude bowel perforation and small volume pneumomediastinum related to pneumoperitoneum. There is a small left pleural effusion with trace left pneumothorax component and acknowledgement of prior distal esophagectomy with gastric pull-up with severe distention of the intrathoracic stomach, exerting mild mass effect in the left atrium and findings of prior cystectomy and notably with a neobladder. There is a small volume of mediastinal air. 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 At present, the patient looks surprisingly good, does not appear toxic in any way. He is accompanied by his son. REVIEW OF SYSTEMS: He denies any shortness of breath or chest pain. He has had no hemoptysis or hematemesis. PHYSICAL EXAMINATION: GENERAL: Pleasant white man who does not look systemically toxic at this time. VITAL SIGNS: Currently show temperature of 97.1, pulse of 63, blood pressure 139/89. NECK: Trachea is midline. CHEST: Shows normal respiratory excursion. ABDOMEN: Mildly distended but not massively so. There is no tenderness to my examination. EXTREMITIES: Show no clubbing, cyanosis, or edema. ASSESSMENT: The patient has a small-bowel obstruction and most likely at the anastomosis. A erqa-hz-zude anastomosis was performed so as to avoid early postoperative edema related difficulty of passage of enteric contents, but nevertheless that is a likely finding at this time. The patient had tolerated a full liquid diet and advanced himself to a regular diet at home, which may have been a bit aggressive under the circumstances. I initially accepted him in transfer from [facility] on the probability that perforated bowel was present, but given his clinical situation and after review of his CT scan performed elsewhere and in conferring with Dr. Kaufman, radiologist associated with our system, this may represent simply the bowel obstruction without actual enteric leakage. At this time, we will repeat his chest x-ray and assess that the gastric distention and nasogastric tube placement is at appropriate position. We will repeat his lab studies. Decompression of the GI tract may allow for spontaneous resolution of what appears to be Electronically Signed By: ARVIN GANN MD 04/28/24 1203 PATIENT NAME: VAN ALVAREZ HISTORY AND PHYSICAL DATE OF : 55 REPORT #: [id number] PHYSICIAN: ARVIN GANN MD PCP: MELY GARCIA REPORT IS CONFIDENTIAL AND NOT TO BE RELEASED WITHOUT AUTHORIZATION [address] [place] [address] Signed a postoperative bowel obstruction at the site of anastomosis. If there is increasing concern for enteric leak, then exploration will be mandated of course. I discussed all this with the patient and his son who attends to him. We will remain ready to proceed with operative intervention as necessary. MD TRISH Lainez/STARR /[id number] cc: Copies: ~ Electronically Signed By: ARVIN GANN MD 04/28/24 1203 PATIENT NAME: VAN ALVAREZ HISTORY AND PHYSICAL DATE OF : 55 REPORT #: [id number] PHYSICIAN: ARVIN GANN MD PCP: MELY GARCIA REPORT IS CONFIDENTIAL AND NOT TO BE RELEASED WITHOUT AUTHORIZATION
[2024-04-28] MEDS ORDERED: SUCCINYLCHOLINE IN 0.9% NACL 200 MG/10 ML SYRINGE ONE (12:17)
[2024-04-28] MEDS ORDERED: ondansetron HCL 4 MG/2 ML VIAL ONE (12:17)
[2024-04-28] MEDS ORDERED: KETOROLAC TROMETHAMINE 30 MG/ML VIAL ONE (12:17)
[2024-04-28] MEDS ORDERED: FAMOTIDINE 20 MG/ 2 ML VIAL ONE (12:17)
[2024-04-28] MEDS ORDERED: MIDAZOLAM HCL 2 MG/2 ML VIAL ONE (12:17)
[2024-04-28] MEDS ORDERED: fentaNYL citrate 100 MCG/2 ML VIAL ONE ×2 (12:17→15:59)
[2024-04-28] MEDS ORDERED: LACTATED RINGER'S 1,000 ML IV ONE ×3 (12:17→14:49)
[2024-04-28] MEDS ORDERED: METOCLOPRAMIDE HCL 10 MG/2 ML SDV ONE (12:17)
[2024-04-28] MEDS ORDERED: DEXAMETHASONE SOD PHOS 4 MG/ML VIAL ONE (12:17)
[2024-04-28] MEDS ORDERED: ROCURONIUM BROMIDE 50 MG/5 ML SYR ONE (12:17)
[2024-04-28] MEDS ORDERED: propofoL 200 MG/20 ML VIAL ONE (12:17)
[2024-04-28] MEDS ORDERED: SUGAMMADEX SODIUM 200 MG/2 ML ML ONE (12:17)
--- NOTE | 2024-04-28 12:17 | NUR ---
DR. GANN INT O SEE PATIENT AND PLAN OF CARE DISCUSSED. PT TO GO BACK TO OR. CONSENT SIGNED AND PATIENT WILL BE LEAVING SOON FOR OR. CHG WIPE DOWN COMPLETE. NGT REMAINS. PT AGREEABLE WITH PLAN AND WILL LIKELY COME BACK TO THIS ROOM WHEN DONE WITH SURGERY.
[2024-04-28] MEDS ORDERED: LIDOCAINE HCL 4% 5 ML AMP ONE (12:23)
[2024-04-28] MEDS ORDERED: HEParin SOD (PORCINE) 1,000 UNITS/ML VIAL ONE (13:09)
[2024-04-28] MEDS ORDERED: SODIUM CHLORIDE 0.9% 100 ML IV ONE (13:09)
[2024-04-28] MEDS ORDERED: VASOPRESSIN 20 UNITS/ML VIAL ONE (13:45)
[2024-04-28] MEDS ORDERED: DIGOXIN 500 MCG/2 ML AMP ONE (13:46)
[2024-04-28] MEDS ORDERED: HYDROCORTISONE SOD SUCCINATE 100 MG/2 ML VIAL ONE (13:46)
[2024-04-28] MEDS ORDERED: PHENYLEPHRINE HCL 10 MG/ML VIAL ONE (14:26)
[2024-04-28] MEDS ORDERED: ondansetron HCL 4 MG/2 ML VIAL IV PRN (15:00)
[2024-04-28] MEDS ORDERED: PROCHLORPERAZINE EDISYLATE 10 MG/2 ML VIAL IV PRN (15:00)
[2024-04-28] MEDS ORDERED: NALOXONE HCL 0.4 MG SYR IV PRN (15:00)
[2024-04-28] MEDS ORDERED: droPERidol 5 MG/2 ML VIAL IV PRN (15:00)
[2024-04-28] MEDS ORDERED: MORPHINE SULFATE 10 MG/ML VIAL IV PRN (15:00)
[2024-04-28] MEDS ORDERED: METOCLOPRAMIDE HCL 10 MG/2 ML SDV IV PRN (15:00)
[2024-04-28] MEDS ORDERED: IBLOOD GLUCOSE TEST STRIP 1 EA TEST VI PRN (15:00)
[2024-04-28] MEDS ORDERED: fentaNYL citrate 50 MCG/ML SDV IV PRN (15:00)
--- NOTE | 2024-04-28 16:33 | NUR ---
04/28/24 1633 Sheets,Jennifer 1547 PT ARRIVED TO CCU ROOM 128. ORAL AIRWAY AND 10L VIA MASK IN PLACE. VSS. RESP EVEN AND UNLABORED. NG TUBE TO CONTINUIOUS LOW SUCTION AND HOB INCREASED SLIGHTLY. 1551 PT WAKES TO TACTILE STIMULI AND ORAL AIRWAY REMOVED. RN REORIENTING PT TO CCU. PT DENIES PAIN AND EASILY FALLS BACK TO SLEEP WITH SMALL AMOUNT OF SNORING. 1555 O2 REMOVED. 1557 XRAY AT BEDSIDE, HOB INCREASED. PT REPORTS PAIN IN ABD 5/10. 1605 PT O2 SAT 87-88% AND 2L VIA OXYMASK. DEEP BREATHING ENCOURAGED. 1610 O2 HIGH 90S AND PT REPORTS INCREASED PAIN 8/10, PAIN MEDICATION GIVEN PER EMAR. 1622 O2 SAT REMAINS HIGH 90S AND PT REPORTS NO CHANGE IN PAIN, MEDICATION GIVEN PER EMAR. 1625 PT REPORTS 6/10 PAIN AND EASILY FALLS ASLEEP WITH SNORING NOTED.\\ 1630 REPORT TO CCU RN, PT ASLEEP OFF AND ON AND REPORTS PAIN IS "BETTER". AT BEDSIDE TALKING TO PT. CALL LIGHT WITHIN REACH AND BED PLUGGED IN.
--- NOTE | 2024-04-28 16:46 | NUR ---
SBAR REPORT AND HANDOFF RECEIVED FROM MYRON Ortiz RN. CARE ASSUMED BY THIS RN AT 1630. VAN IS NOTED TO BE IN BED, CONVERSING WITH CONCRETE FINISHER APPRENTICE, ENDORSES COMFORT AFTER ANALGESIC MEDS ADMINISTERED BY PREVIOUS RN, HE STATES THAT HIS THROAT AND MOUTH ARE DRY. VSS AND WDL PER MONITOR.
--- NOTE | 2024-04-28 16:50 | NUR ---
TRIPLE LUMEN RIGHT IJ PLACEMENT CONFIRMED BY CHEST XRAY. ALL LUMENS FLUSH, ASPIRATE, ARE PATENT AND INTACT. SCDS IN USE
[2024-04-28] MEDS ORDERED: ACETAMINOPHEN 1,000 MG/100 ML VIAL IV PRN (17:00)
[2024-04-28] MEDS ORDERED: MULTIVITAMINS 10 ML,ZINC/COPPER/MANGANESE/SELENIUM 1 ML,Insulin Regular, Human 20 UNIT ... IV SCH ×2 (17:30)
[2024-04-28 17:47] LABS: INR 1.52 (0.80-1.30); PROTIME 17.9 Sec (11.2-14.2)
[2024-04-28 17:49] LABS: PARTIAL THROMBOPLASTIN TIME 30.3 Sec (22.9-41.3)
[2024-04-28 18:01] LABS: ALBUMIN 1.7 g/dL (3.4-5.0); ALBUMIN/GLOBULIN RATIO 0.47 (1.1-2.4); ANION GAP 13.1 (7-21); BILIRUBIN, TOTAL 0.5 ng/dL (0.2-1.0); BUN/CREATININE RATIO 24.13 (6.0-28.6); CALCIUM 7.4 mg/dL (8.5-10.1); CHOLESTEROL/HDL RATIO 3.5; CREATININE, SERUM 1.16 mg/dL (0.70-1.30); MAGNESIUM 2.2 mg/dL (1.8-2.4); PHOSPHORUS, INORGANIC 2.6 mg/dL (2.5-4.9); POTASSIUM 5.1 mmol/L (3.5-5.1); PROTEIN, TOTAL 5.3 g/dL (6.4-8.2)
--- NOTE | 2024-04-28 18:19 | NUR ---
PAIN IN THROAT ENDORSED. MENTHOL LOZENGE PROVIDED. INDWELLING HEBERT CATHETER FLUSHED WITH 60CC STERILE WATER. 350CC CLEAR YELLOW URINE WITH MUCOUS COLLECTED IN UROMETER. TPN INITIATED. LR GTT AT 85CC PER HOUR HUNG. SPOUSE DON UPDATED REGARDING PLAN OF CARE AND SURGICAL PROCEDURE. SHE EXPRESSED GRATITUDE AND STATED THAT SHE WOULD BE IN SOON.
--- NOTE | 2024-04-28 19:20 | NUR ---
handoff report received from ROBERTO Andrea. pt at bedside. no needs at this time.
[2024-04-28] MEDS ORDERED: IBLOOD GLUCOSE TEST STRIP 1 EA TEST VI SCH (20:00)
--- NOTE | 2024-04-28 20:20 | NUR ---
DISCUSSED PATIENT'S BLOOD GLUCOSE WITH . NEW ORDERS RECEIVED; SEE EMAR. VERIFIED VIA REPEAT BACK.
[2024-04-28] MEDS ORDERED: Insulin Regular, Human 100 UNIT/ML ML SUB-Q SCH (20:30)
--- NOTE | 2024-04-28 21:00 | NUR ---
THIS RN INTO PATIENT ROOM TO PROVIDE HS MEDICATION ADMINISTRATION, PATIENT IS ALERT AND ORIENTED, HE IS LISTENING TO PODCASTS THROUGH HIS HEARING AIDS, HE REPORTS MILD ABD PAIN 4/10, TORDAOL ADMINISTERED PRN. NO OTHER CONCERNS AT THIS TIME, HE REPORTS HE DOES NOT FEEL TIRED, BUT WILL TRY TO SLEEP.
--- NOTE | 2024-04-28 21:05 | NUR ---
pt laying awake in bed. pt remains on room air, vital signs stable. pt vera cath patent and draining. pt NG tube in place. pt surgical site noted to have no new drainage and is WNL. pt states he has mild pain, denies feeling nauseous. pt is alert and oriented. pt states he is going to try and sleep. pt central line dressing C/D/I. pt has TPN running per emar. pt has no needs at this time. call light witin reach. bed in low and locked position.
--- NOTE | 2024-04-28 22:15 | NUR ---
PT PLACED ON 1L NC. PT DESATS LOW 86% WHILE SLEEPING. PT AWAKENED WHEN RN AT BEDSIDE. PT REQUESTED TO PLUG IN HIS PHONE AND HEARING AIDS. NO FURTHER NEEDS AT THIS TIME. CALL LIGHT WITHIN REACH. BED IN LOW AND LOCKED POSTION WITH BED ALARM ON.
--- NOTE | 2024-04-28 23:19 | NUR ---
PT RESTING IN BED WITH EYES CLOSED, RESPIRATIONS EVEN AND UNLABORED. VSS. NO NEEDS AT THIS TIME. CALL LIGHT WITHIN REACH.
[2024-04-29] VITALS (12 sets, daily range): BP systolic 106–138; BP diastolic 65–73
--- NOTE | 2024-04-29 01:15 | NUR ---
PT AWAKE LAYING IN BED. PT STATES HIS ABDOMEN IS HURTING. STATES THE PAIN LEVEL IS 8/10, AND IS REQUESTING SOME PAIN MEDICATION. PAIN MEDICATION GIVEN PER EMAR. NO FURTHER NEEDS AT THIS TIME. CALL LIGHT WITHIN REACH.
--- NOTE | 2024-04-29 03:43 | NUR ---
PT RESTING IN BED WITH EYES CLOSED, RESPIRATIONS EVEN AND UNLABORED. PT VITAL SIGNS STABLE. CALL LIGHT WITIN REACH, BED IN LOW AND LOCKED POSTION.
[2024-04-29 06:15] LABS: BASOPHILS 0.7 % (0-2); HEMATOCRIT 29.2 % (35.0-50.0); HEMOGLOBIN 9.5 g/dL (12.0-18.0); LYMPHOCYTES 5.6 % (24-44); MCH 29.3 (27-36); MCHC 32.5 g/dl (30-36); MCV 90.3 fl (81-99); NEUTROPHILS 84.7 % (39-80); PLATELET COUNT 271 K/uL (140-440); RBC 3.23 M/ul (4.3-5.7)
--- NOTE | 2024-04-29 06:29 | NUR ---
IN PT ROOM FOR MORNING LAB DRAW. BLOOD DRAWN FROM CENTRAL LINE AND SENT TO LAB. PT DENIES ANY PAIN AT THIS TIME. PT REQUEST HIS HEARING AIDS. PT SURGICAL SITE DRESING INTACT, NO NEW DRAINAGE NOTED. PT HAS NO NEEDS AT THIS TIME. CALL LIGHT WITHIN REACH.
[2024-04-29 06:37] LABS: ALBUMIN 1.4 g/dL (3.4-5.0); ALBUMIN/GLOBULIN RATIO 0.41 (1.1-2.4); ANION GAP 8.6 (7-21); BILIRUBIN, TOTAL 0.3 ng/dL (0.2-1.0); BUN/CREATININE RATIO 26.36 (6.0-28.6); CALCIUM 7.4 mg/dL (8.5-10.1); CREATININE, SERUM 1.1 mg/dL (0.70-1.30); POTASSIUM 4.6 mmol/L (3.5-5.1); PROTEIN, TOTAL 4.8 g/dL (6.4-8.2)
[2024-04-29 06:39] LABS: PHOSPHORUS, INORGANIC 2.1 mg/dL (2.5-4.9)
[2024-04-29 06:46] LABS: MAGNESIUM 2.2 mg/dL (1.8-2.4)
--- NOTE | 2024-04-29 07:30 | NUR ---
REPORT RECEIVED. PATIENT SLEEPING, NO DISTRESS NOTED. IVF, NGT, HEBERT CATH PATENT. SCDS ON.
--- NOTE | 2024-04-29 08:00 | NUR ---
HEBERT CATH IRRIGATED IS OCCLUDED. AFTER IRRIGATED. SUHA URINE WITH SEDIMENT RETURN. ASSESSMENT DONE. ABD DRESSING IS INTACT WITH SMALL AMOUNT OF OLD BLOOD NOTED. TALKED WITH PATIENT ABOUT POC FOR THE DAY, INDICATES UNDERSTANDING. ACCUCHECK-277. 4 UNITS INSULIN TO BE GIVEN. NGT IRRIGATED. DENIES NAUSEA.
--- NOTE | 2024-04-29 08:21 | NUR ---
TORDOL 15 MG IV GIVEN FOR POST-OP PAIN.
--- NOTE | 2024-04-29 10:00 | NUR ---
UP TO CHAIR. SPONGE BATH AND SHAVE GIVEN, TOLERATED WELL. STABLE ON FEET.
--- NOTE | 2024-04-29 12:00 | NUR ---
CONTINUES TO SIT IN CHAIR. ASSESSMENT UNCHANGED.
--- NOTE | 2024-04-29 14:07 | NUR ---
MORPHINE 2 MG IV GIVEN FOR C/O POST OP PAIN.
[2024-04-29] MEDS ORDERED: Insulin Regular, Human 100 UNIT/ML ML ONE (14:15)
--- NOTE | 2024-04-29 14:50 | NUR ---
REPORT GIVEN TO PARVEZ WHEELER RN WHO WILL BE TAKING OVER NURSING CARE ON MED-SURG.
--- NOTE | 2024-04-29 15:00 | NUR ---
TO MED-SURG VIA CHAIR.
--- NOTE | 2024-04-29 15:20 | NUR ---
PT TRANSFERRED FROM CCU TO 109, REPORT RECEIVED FROM JJ MEJIA. PT ALERT,AWAKE, AND PLEASANT. ABD MIDLINE INCISION DRSG WITH SCANT AMT OF SANGUANOUS DRAINAGE. BOWEL SOUNDS PRESENT X 4 QUADRANTS, PT DENIES NAUSEA. HEBERT CATHETER INTACT DRAINING YELLOW URINE WITH SOME SEDIMENT. LUNGS CLEAR. CALL LIGHT WITHIN REACH, NO REQUESTS AT THIS TIME.
--- NOTE | 2024-04-29 15:25 | NUR ---
PT TRANSFERRED FROM CHAIR TO BED, TOLERATED WELL.
[2024-04-29] MEDS ORDERED: MULTIVITAMINS 10 ML,ZINC/COPPER/MANGANESE/SELENIUM 1 ML in AA 5% DEXT 20% WITH LYTES 2,... IV SCH (16:00)
[2024-04-29] MEDS ORDERED: MULTIVITAMINS ZINC IV SCH (16:00)
[2024-04-29] MEDS ORDERED: SELENIUM INSULIN REGULAR HUMAN IV SCH (16:00)
[2024-04-29] MEDS ORDERED: MANGANESE IV SCH (16:00)
[2024-04-29] MEDS ORDERED: COPPER IV SCH (16:00)
[2024-04-29] MEDS ORDERED: [UNRECOGNIZED DRUG - OTHER] IV SCH (16:00)
--- NOTE | 2024-04-29 16:10 | NUR ---
PT RESTING IN BED WITH FAMILY AT BEDSIDE. CALL LIGHT WITHIN REACH.
--- NOTE | 2024-04-29 18:14 | NUR ---
PT STATES HE IS "COMFORTABLE" AND THAT HIS PAIN HAS DECREASED TO A 1 AFTER RECEIVING TORADOL.
--- NOTE | 2024-04-29 19:26 | NUR ---
RECEIVED REPROT FROM DAY SHIFT RN. PATIENT IS RESTING IN BED WITH EYES CLOSED, RR 16. CALL LIGHT IN REACH. IV INFUSING PER ORDER. CALL LIGHT IN REACH.
--- NOTE | 2024-04-29 19:55 | EKG ---
[facility] [address] [facility] [place] [address] Signed Normal sinus rhythm Low voltage QRS Borderline ECG When compared with ECG of 20-APR-2024 14:31, Sinus rhythm has replaced Ectopic atrial rhythm Nonspecific T wave abnormality has replaced inverted T waves in Inferior leads T wave inversion no longer evident in Anterior leads Confirmed by Maile Elmore MD ([id number]) on 04/29/2024 7:55:49 PM Electronically Signed By: MAILE ELMORE MD 04/29/241954 PATIENT NAME: VAN ALVAREZ Electrocardiogram DATE OF : 55 PHYSICIAN: MAILE ELMORE MD REPORT #: [id number] REPORT IS CONFIDENTIAL AND NOT TO BE RELEASED WITHOUT AUTHORIZATION
--- NOTE | 2024-04-29 20:37 | NUR ---
PATIENTS VITALS TAKEN AND RECORDED. HEBERT CARE COMPLETED. HEBERT EMPTIED. NG TUBE EMPTIED AND IS ON LWIS. PATIENTS INTAKE AND OUTPUT RECORDED. PATIENTS IV INFUSING PER ORDER. PM MEDS GIVEN PER ORDER. PATIENT RATES PAIN AT A 4/10 IN MID ABD, PRN PAIN MEDICATION GIVEN PER ORDER. PATIENT DENIES ANY NAUSEA. PATIENT GIVEN PRN CEPACOL FALGUNI PER REQUEST FOR REPORTS OF DRY MOUTH. PATIENT IS AAOX4. SCDS IN PLACE. PATIENT IS ON RA. RT IN TO EVAL PATIENT. PATIENT DENIES ANY FURHTER NEEDS. CALL LIGHT AND BELONGINGS ARE WITHIN REACH.
--- NOTE | 2024-04-29 22:31 | NUR ---
PATIENTS SCHEDULED ABX INFUSING PER ORDER. PATIENT DENIES ANY PAIN OR NAUSEA. PATIENTS IV INFUSING PER ORDER. NG TO LWIS. HEBERT DRAINING CLEAR YELLOW URINE. PATIENT DENIES ANY FURTHER NEEDS. CALL LIGHT IN REACH.
[2024-04-30] VITALS (11 sets, daily range): BP systolic 130–172; BP diastolic 67–78
--- NOTE | 2024-04-30 00:12 | NUR ---
PATIENT IS RESTING IN BED WITH EYES CLOSED, RR 16. CALL LIGHT IN REACH. NG TO LWIS. IV INFUSING PER ORDER. CALL LIGHT IN REACH.
--- NOTE | 2024-04-30 01:48 | NUR ---
PATIENT REPORTS 4/10 MID ABD PAIN, PRN PAIN MEDICATION GIVEN PER ORDER. PATIENT DENIES ANY NAUSEA. PATIENTS HEBERT EMPTIED. PATIENTS IV INFUSING PER ORDER. PATIENT DENIES ANY FURTHER NEEDS. CALL LIGHT IN REACH.
--- NOTE | 2024-04-30 04:08 | NUR ---
PATIENT IS RESTING IN BED WITH EYES CLOSED, RR15. CALL LIGHT IN REACH. IV INFUSING PER ORDER. NG TO LWIS.
--- NOTE | 2024-04-30 05:24 | NUR ---
PATIENTS BLOOD DRAWN AND SENT TO LAB PER PROTOCOL. PATIENTS VITALS TAKEN AND RECORDED. PATIENTS HEBERT EMPTIED. PATIENTS NG CANISTER EMPTIED. INTAKE AND OUTPUT RECORDED. PATIENT DENIES ANY PAIN OR NAUSEA. AM ABX INFUSING PER ORDER. PATIENT GIVEN PRN CEPACOL PER PATIENT REQUEST. PATIENT DENIES ANY FURTHER NEEDS. SCDS IN PLACE. CALL LIGHT IN REACH. NG TO LWIS.
[2024-04-30 05:42] LABS: ANION GAP 6.3 (7-21); BUN/CREATININE RATIO 37.11 (6.0-28.6); CALCIUM 7.8 mg/dL (8.5-10.1); CREATININE, SERUM 0.97 mg/dL (0.70-1.30); PHOSPHORUS, INORGANIC 2.2 mg/dL (2.5-4.9); POTASSIUM 4.3 mmol/L (3.5-5.1)
--- NOTE | 2024-04-30 07:10 | NUR ---
RECEIVED REPORT FROM ROBERTO PENDLETON. PT RESTING IN BED WITH EYES CLOSED, BREATHING EVEN AND UNLABORED. NG TUBE CONNECTED TO LIS PER ORDER. CALL LIGHT WITHIN REACH.
[2024-04-30] MEDS ORDERED: GLUCAGON,HUMAN RECOMBINANT 1 MG/ML VIAL SUB-Q PRN (08:00)
[2024-04-30] MEDS ORDERED: DEXTROSE 50% 50 ML SYR IV PRN ×2 (08:00)
[2024-04-30] MEDS ORDERED: IBLOOD GLUCOSE TEST STRIP 1 EA TEST XX PRN (08:00)
[2024-04-30] MEDS ORDERED: MEROPENEM 500 MG in SODIUM CHLORIDE 0.9% 100 ML IV SCH ×2 (08:00→14:00)
[2024-04-30] MEDS ORDERED: DEXTROSE 5% 1,000 ML IV PRN (08:00)
--- NOTE | 2024-04-30 08:38 | NUR ---
IV PUMP ALARMING, THIS RN TO BEDSIDE, ABX COMPLETE. PT RESTING IN BED WITH EYES CLOSED, BREATHING EVEN AND UNLABORED, CALL LIGHT WITHIN REACH.
--- NOTE | 2024-04-30 09:53 | NUR ---
PT AWAKE IN BED, PLACES HAs INDEPENDENTLY. PT STATES PAIN IN ABDOMEN IS 3/3, REQUESTS PRN PAIN MEDICATION, GIVEN. PT DENIES NAUSEA AND SOB AT THIS TIME. WHITE AND BROWN LUMENS FLUSHED WITH 10ML OF NS EACH, BRISK BLOOD RETURN. WHITE AND BROWN LUMENS NOT HEPARIN LOCKED AT THIS TIME D/T CURRENT USE FOR ABX AND TPN. BLUE LUMEN FLUSHED WITH 10ML NS AND LOCKED WITH 5ML OF HEPARIN PER ORDER. CAPS PLACED ON ALL LUMEN ACCESSES. NG TUBE IN PLACE, CONNECTED TO LIS PER ORDER, SMALL AMOUNT OF OUTPUT IN SUCTION CONTAINER. HEBERT CATHETER REMAINS IN PLACE, MINIMAL AMOUNT OF URINE PRESENT IN HEBERT BAG, HEBERT CARE COMPLETED AND TUBING ASSESSED/REPOSITIONED, LARGE AMOUNT OF URINE BEGINS TO DRAIN INTO BAG, 650ML OUT TOTAL. PT EDUCATION ON HEBERT CATHETER AND TROUBLESHOOTING, PT VERBALIZES UNDERSTANDING. PT EDUCATION ON IMPORTANCE OF AMBULATING TO ASSIST WITH RECOVERY AND PAIN CONTROL, PT VERBALIZES UNDERSTANDING AND STATES HE WILL CALL ONCE PAIN HAS REDUCED IN ABDOMEN TO AMBULATE PACHECO AND GET UP TO CHAIR. PT STATES NO FURTHER NEEDS AT THIS TIME, CALL LIGHT WITHIN REACH.
[2024-04-30] MEDS ORDERED: SODIUM PHOSPHATE 20 MMOL in DEXTROSE 5% 250 ML IV ONE (11:00)
--- NOTE | 2024-04-30 11:45 | OR ---
[facility] [address], [place] [address] Signed DATE OF OPERATION: 04/28/2024 SURGEON: Arvin Gann MD PREOPERATIVE DIAGNOSES: 1. High-grade distal small-bowel obstruction. 2. Recent history of reduction of closed loop obstruction, the left diaphragmatic defect requiring segmental small bowel resection (2 feet with [id number] functional end-to-end anastomosis, April 22, 2024. POSTOPERATIVE DIAGNOSES: 1. High-grade bowel obstruction at recent anastomosis without enteric leak 2. Intraabdominal adhesions. PROCEDURES: 1. Exploratory laparotomy with lysis of adhesions. 2. Decompression of small bowel (enterostomy with decompression of bowel contents). 3. Segmental small bowel resection with obfp-[id number] stapled enteroenterostomy 80 cm. 4. Placement of right internal jugular central venous catheter. ANESTHESIA: General endotracheal, Arvin Johnston CRNA. INDICATION: This 69-year-old white man from [facility]. He presented to the emergency room on April 22, 2024 with small-bowel obstruction ( closed-loop obstruction) having 2 feet of small bowel herniated through a left hemidiaphragm defect. 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 A relaxing incision had been made in the left hemidiaphragm to mobilize the left ella for hernia repair. The patient had esophagectomy with gastric pull up reconstruction at [facility]. His recent operation included withdrawal and reduction of the herniated small bowel from the left pleural space, which was found to be completely infarcted requiring segmental bowel resection 2 feet in length. He underwent an isoperistaltic eibi-yt-html enteroenterostomy without problem. He was discharged home tolerating a diet, but did then have what sounds like a regular dxp-glq-bmaxz diet and had recurrent symptoms of abdominal pain. He presented to the emergency room in [place], [place] where he lives and a CT scan was undertaken, which showed some free air, but marked Electronically Signed By: ARVIN GANN MD 04/30/24 1145 PATIENT NAME: VAN ALVAREZ OPERATIVE REPORT DATE OF : 55 REPORT #: [id number] PHYSICIAN: ARVIN GANN MD PCP: MELY GARCIA REPORT IS CONFIDENTIAL AND NOT TO BE RELEASED WITHOUT AUTHORIZATION [facility] [address], [place] [address] Signed dilation of small bowel consistent with obstruction as well. I accepted him in transfer from [place]. Decompression of his stomach has been undertaken and a repeat CT scan shows no sign of significant intra-abdominal free air at this point. On that basis, a perforation is considered unlikely, but bowel obstruction is persistent and most likely at the anastomotic area from recent operation. 48 hours of decompression have been unsuccessful initiating resumption of bowel function and on that basis, I have recommended exploration and evaluation to assure that the site of obstruction is the anastomosis, though it may be elsewhere. It is noted that he has undergone radical cystectomy greater than 20 years ago with a neobladder made of small bowel. Therefore, other areas of intestinal resection have also been undertaken. The patient understands the risk of bleeding, infection, need for revision of the anastomosis or other unforeseen interventions and wishes to proceed. Additionally, I have recommended a central line be placed to initiate TPN if appropriate. FINDINGS: Indeed the bowel was quite markedly dilated and inflamed. The obstruction did ultimately appear to be at the recent anastomosis. Distal decompression from the anastomosis of bowel was noted. There was no sign of enteric leak, no twisting or internal herniation, but profound edema and inflammatory change in the area. There was copious retained enteric content proximal to the obstructed anastomosis and profound edema of the anastomosis. Remedy included enteric decompression of the proximal small bowel and ultimately resection of the anastomotic area with a snpr-hi-[id number] (functional end to end) anastomosis by stapled technique providing a general aperture of anastomosis. Lysis of adhesions of other small bowel loops in the pelvis were undertaken as well. Gentle manipulation from proximal to distal across the anastomosis showed good patency and no sign of leakage. A central venous catheter was placed via the right internal jugular vein, showing good function and a postop chest x-ray showing good position. DESCRIPTION OF PROCEDURE: The patient was brought to the operating room and given a general endotracheal anesthetic. He already had a Cortes catheter in place and sequential compression device stockings were used also. Steri-Strips were removed from the midline incision, which was healing well without signs of erythema or drainage. The abdomen was prepared with a chlorhexidine solution and draped sterilely. The previous incision was incised. The abdomen was entered. The bowel loops appeared completely viable. There was some turbid fluid within the abdominal cavity for which Gram stain and cultures were obtained. The Electronically Signed By: ARVIN GANN MD 04/30/24 1145 PATIENT NAME: VAN ALVAREZ OPERATIVE REPORT DATE OF : 55 REPORT #: [id number] PHYSICIAN: ARVIN GANN MD PCP: RADHA,MELY PALOMO INFERTILITY NURSE REPORT IS CONFIDENTIAL AND NOT TO BE RELEASED WITHOUT AUTHORIZATION [facility] [address], [place] [address] Signed small bowel loops, though dilated, did not look ischemic in any way. Gentle manipulation of the bowel allowed for identification of small bowel adhesions to the left side of the abdomen. These were taken down with sharp dissection. The obstruction did not appear to be at that site, but rather downstream. Further manipulation identified the area of previous anastomosis. It was completely intact without sign of leakage or other problem and there was no sign of mesenteric defect. Unfortunately, the site of anastomosis was quite markedly edematous and swollen and obstructed. The downstream portion was completely decompressed. The bowel was extracted at the abdominal cavity. The significant dilation and enteric contents proximal to the anastomosis would likely benefit from decompression considering his stomach is in a tubular configuration as a conduit for the esophagus not easily allowing retrograde decompression via the nasogastric tube in the tubular gastric remnant. Examination of the recent diaphragmatic repair of the left hemidiaphragm showed no sign of reherniation or other problem . Isolating laparotomy packs were placed around the explanted bowel and the mesentery of the segment of bowel in relation to the anastomosis was secured with hemostats and 2-0 silk ties. A MAMADOU stapling device was used to transect the decompressed distal small bowel and a Meron clamp applied proximal to the anastomosis to allow segmental resection of the dysfunctional anastomosis. The small segment of small bowel with the anastomosis was sent for permanent pathology. As the proximal small bowel was quite markedly edematous and inflamed and dilated, enteric decompression was deemed advisable. The bowel segment was kept outside the abdominal cavity. The remaining abdominal contents were isolated with laparotomy packs. Opening of the Meron clamp allowed for egress of the enteric contents. While the assistant chief of police was holding the decompressive segment of bowel over a basin, I milked the small bowel distalward evacuating most if not all those contents. Gloves and gowns were changed after reapplication of a Meron clamp and subsequent stapling of that segment of bowel. Plans were then made for shinto of enteric continuity. Stay sutures with 3-0 silk suture were made in the antimesenteric portion of the small bowel. Decompressed segment and the dilated and somewhat edematous segment were secured [id number] with a proximal and distal 3-0 silk suture. The corner of the staple line was excised on each segment in the angles of the 80 mm MAMADOU stapling device applied and an enteroenterostomy formed with a stapling device in a [id number] configuration on the anti mesenteric aspect of the bowel. The open site was then secured with an interrupted 3-0 Vicryl suture and interrupted 3-0 silk suture. Stabilizing 3-0 silk sutures were applied at the crux of the anastomosis distally and the mesenteric defect Electronically Signed By: ARVIN GANN MD 04/30/24 1145 PATIENT NAME: VAN ALVAREZ OPERATIVE REPORT DATE OF : 55 REPORT #: [id number] PHYSICIAN: ARVIN GANN MD PCP: MELY GARCIA REPORT IS CONFIDENTIAL AND NOT TO BE RELEASED WITHOUT AUTHORIZATION [address] [address] Signed was secured in the ways that would not compromise the enteric flow. Gloves and gowns were changed once again, and the small bowel was milked from the ligament of Treitz distalward across the anastomosis into the previously decompressed segment. There was no sign of anastomotic leak or other problem. The small bowel was replaced in the abdominal cavity and the natural anatomic configuration in the abdominal cavity copiously irrigated with saline solution. Small bowel loops in the pelvis related to prior bladder reconstruction were incised so as to avoid other areas of obstruction in the near future. Plans were then made for closure. The midline fascia was reapproximated with running bidirectional #1 PDS suture. Subcutaneous tissue irrigated and skin closed with running subcuticular 3-0 Vicryl. Plans were then made for placement of a right central venous catheter. With a separate glove gown and so forth, the right neck and upper chest were prepared with a chlorhexidine solution and draped sterilely. Using the Arrow PowerPort triple-lumen catheter kit, the right internal jugular vein was easily accessed showing dark nonpulsatile blood. A flexible J-wire was passed down the needle. There was minimal ectopy. Site was incised with an 11 blade and dilated with a blue dilator and a previously inspected and irrigated Arrow blue PowerPort catheter previously attached with clave devices. Once passed over the wire, the wire was removed. The catheter was withdrawn a bit and secured the skin with the enclosed suture and anti-infective disc. Aspiration on the distal port showed dark nonpulsatile blood and easy flushing of heparinized saline. An op-site was then applied. He was ultimately extubated and transferred to the recovery room in good condition having suffered no complication. Sponge, needle, and instrument counts reported as correct x3. MD TRISH Lainez/STARR /[id number] Copies: ~ Electronically Signed By: ARVIN GANN MD 04/30/24 1145 PATIENT NAME: VAN ALVAREZ OPERATIVE REPORT DATE OF : 55 REPORT #: [id number] PHYSICIAN: ARVIN GANN MD PCP: MELY GARCIA REPORT IS CONFIDENTIAL AND NOT TO BE RELEASED WITHOUT AUTHORIZATION
--- NOTE | 2024-04-30 12:15 | NUR ---
PT STATES HE WOULD LIKE TO WALK, NG TUBE CLAMPED. PT WALKS X5 LAPS AROUND MEDSURG UNIT WITH SBA FOR LTM. PT STATES NO INCREASE IN PAIN WITH WALKING, STATES "IT FEELS GOOD TO BE UP AND MOVING AGAIN". PT BACK TO ROOM, UP TO CHAIR. PT REQUESTS BLANKET, GIVEN. NG TUBE RECONNECTED TO LIS. PT STATES NO FURTHER NEEDS AT THIS TIME. PT HAS QUESTIONS ABOUT RECOMMENDED FREQUENCY OF WALKING, PT EDUCATION ON IMPORTANCE OF FREQUENT WALKS AND MONITORING PAIN, PT VERBALIZES UNDERSTANDING. CALL LIGHT WITHIN REACH.
--- NOTE | 2024-04-30 13:30 | NUR ---
PT STATES PAIN IS 3/10, REQUESTS PRN PAIN MEDICATION, GIVEN. PT STATES NO FURTHER NEEDS AT THIS TIME, CALL LIGHT WITHIN REACH.
[2024-04-30] MEDS ORDERED: IBLOOD GLUCOSE TEST STRIP 1 EA TEST VI SCH ×2 (14:00→21:00)
--- NOTE | 2024-04-30 15:48 | NUR ---
PT STATES PAIN IS 3/10 IN ABD, REQUESTS PRN PAIN MEDICATION, GIVEN. PT EDUCATION ON WALKING, PT AGREES THAT HE WOULD LIKE TO GO FOR WALK AFTER PAIN IS MORE CONTROLLED. SECUREMENT DEVICE FOR NG TUBE APPEARS TO BE LIFTING OFF SKIN, REMOVED, SKIN CLEANED, MASITOL IN PLACE, NEW SECUREMENT DEVICE PLACED. BOWEL TONES ACTIVE AT THIS TIME. MIDLINE INCISION UNCHANGED FROM MORNING ASSESSMENT. PT STATES NO FURTHER NEEDS AT THIS TIME, CALL LIGHT WITHIN REACH.
--- NOTE | 2024-04-30 17:38 | NUR ---
In with pt in response to call light. Pt wishes to ambulate after his cath bag is emptied as he feels there is pressure build up in his bladder. Cath bag emptied of 800ml clear yellow urine then the tubing was emptied into the bag of an additional 50ml clear yellow urine with white sediment (white sediment also in the 800ml emptied). Pt up and ambulated hallway 7 times, tolerated well, back to bed, reported pain level at a 3 out of 10. Noted pt's fingers were purple (all 10 of them) while he ambulated, he denies hx of reynaud's, fingers were cool to the touch, but not painful, primary RN notified. Cath bag emptied of additional 150ml clear yellow urine with white sediment once he was back in bed, IV pump plugged back into the wall, and NGT reconnected to [facility]. (pt stood at bathroom sink for a few minutes after ambulating and washed his head and face with water and a wash cloth before climbing in to bed). SCD's placed on pt and turned on. Call light in reach. Notified Primary RN of progress and of the pt's desire for pain medication.
--- NOTE | 2024-04-30 18:15 | NUR ---
PT STATES PAIN IS 4/10 IN ABD, REQUESTS PRN TORADOL, GIVEN. PT STATES NO FURTHER NEEDS AT THIS TIME. CALL LIGHT WITHIN REACH.
--- NOTE | 2024-04-30 18:19 | NUR ---
PT GIVEN CHG WIPES TO DO DAILY [place] WITH INSTRUCTIONS, PT VERBALIZES UNDERSTANDING. CALL LIGHT WITHIN REACH.
--- NOTE | 2024-04-30 18:32 | NUR ---
PT STATES HE HAS PASSED A "SMALL AMOUNT OF GAS A COUPLE OF TIMES".
--- NOTE | 2024-04-30 19:21 | NUR ---
RECEIVED REPORT FROM DAY SHIFT RN. PATIENT IS RESTING IN BED WATCHING TV. PATIENT DENIES ANY PAIN OR NAUSEA. NO NEEDS NOTED. CALL LIGHT IN REACH. NG TO LWIS. IV INFUSING PER ORDER.
--- NOTE | 2024-04-30 20:15 | NUR ---
PATIENTS VITALS TAKEN AND RECORDED. NG CANISTER EMPTIED. HEBERT EMPTIED. INTAKE AND OUTPUT RECORDED. PATIENTS PM MEDS GIVEN PER ORDER. PATIENT RATES PAIN AT A 4/10, PRN PAIN MEDICATION GIVEN PER ORDER. PATIENT DENIES ANY NAUSEA. PATIENTS NG SECUREMENT DEVICE REPLACED. PATIENT PROVIDED PRN THROAT LOZENGE. PATIENTS IV INFUSING PER ORDER. PATIENTS IV ABX INFUSING PER ORDER. PATIENT DENIES ANY FURTHER NEEDS. CALL LIGHT IN REACH. SCDS IN USE.
--- NOTE | 2024-04-30 22:22 | NUR ---
PATIENT IS RESTING IN BED. PATIENT REPORTS IMPROVEMENT IN PAIN. PATIENT DENIES ANY NAUSEA. PATIENTS IV INFUSING PER ORDER. SCDS IN USE. PATIENT ABISAI ANY FURTHER NEEDS. CALL LIGHT IN REACH.
[2024-05-01] VITALS (10 sets, daily range): BP systolic 117–137; BP diastolic 65–73
--- NOTE | 2024-05-01 00:28 | NUR ---
PATIENT IS RESTING IN BED WITH EYES CLOSED, RR 15. CALL LIGHT IN REACH. IV INFUSING PER ORDER.
--- NOTE | 2024-05-01 02:15 | NUR ---
PATIENTS BS CHECKED AND WNL. PATIENTS IV ABX INFUSING PER ORDER. PATIENT APPEARS ANXIOUS. PATIENT STATED "I AM JUST SO WORRIED ABOUT BEING BACK TO NORMAL I CANT SLEEP", PRN ANXIETY MEDICATION GIVEN PER ORDER. PATIENT DENIES ANY PAIN OR NAUSEA. PATIENTS HEBERT CATHERTER FOUND TO BE KINKED AND NOT DRAINING URINE. THIS RN IRRIGATED CATHETER WITH 5ML OF NS AND THEN URINE BEGAN TO FLOW FREELY. PATIENT DENIES ANY FURTHER NEEDS. CALL LIGHT IN REACH.
--- NOTE | 2024-05-01 04:09 | NUR ---
PATIENT IS RESTING IN BED WITH EYES CLOSED, RR 16. CALL LIGHT IN REACH. NG TO LWIS. IV INFUSING PER ORDER. SCDS IN PLACE. HEBERT DRAINGING YELLOW URINE. CALL LIGHT IN REACH.
--- NOTE | 2024-05-01 05:37 | NUR ---
PATIENTS BLOOD DRAWN AND SENT TO LAB PER PROTOCOL. PATIENTS IV INFUSING PER ORDER. PATIENT HAS SCDS IN USE. HEBERT EMTPIED. NG CANISTER EMPTIED. INTAKE AND OUTPUT RECORDED. PATIENT DENIES ANY PAIN OR NAUSEA. PATIENT DENIES ANY FURTHER NEEDS. CALL LIGHT IN REACH.
[2024-05-01 05:42] LABS: PARTIAL THROMBOPLASTIN TIME 31.7 Sec (22.9-41.3)
[2024-05-01 05:43] LABS: INR 1.15 (0.80-1.30)
[2024-05-01 05:51] LABS: CHOLESTEROL/HDL RATIO 2.8; MAGNESIUM 1.4 mg/dL (1.8-2.4); PHOSPHORUS, INORGANIC 2.9 mg/dL (2.5-4.9)
[2024-05-01 05:53] LABS: ALBUMIN 1.6 g/dL (3.4-5.0); ALBUMIN/GLOBULIN RATIO 0.43 (1.1-2.4); BILIRUBIN, TOTAL 0.4 ng/dL (0.2-1.0); CREATININE, SERUM 0.8 mg/dL (0.70-1.30); PROTEIN, TOTAL 5.3 g/dL (6.4-8.2)
--- NOTE | 2024-05-01 06:00 | NUR ---
PATIENT IS RESTING IN BED WITH EYES CLOSED, RR 16. CALL LIGHT IN REACH. IV INFUSING PER ORDER
--- NOTE | 2024-05-01 07:00 | NUR ---
REPORT RECEIVED FROM DREDGE OPERATOR SUPERVISOR RN KEERTHI. PATIENT IS LYING IN BED WITH EYES CLOSED AND RESPIRATIONS ARE EVEN AND UNLABORED. CALL LIGHT AND PERSONAL BELONGINGS ARE WITHIN REACH.
--- NOTE | 2024-05-01 07:42 | NUR ---
Board has been updated and call light has been placed within reach. No request from patient at this time.
--- NOTE | 2024-05-01 08:59 | NUR ---
PATIENT GIVEN PRN TORADOL PER THE EMAR. PATIENT NG TUBE OFF THE SUCTION TO GET IMAGING DONE AT THIS TIME. PATIENT IS NOW OFF THE FLOOR AT THIS TIME.
[2024-05-01] MEDS ORDERED: MAGNESIUM SULFATE 2 GM/50 ML BAG IV ONE (09:00)
[2024-05-01] MEDS ORDERED: PHYTONADIONE 10 MG/ML AMP SUB-Q SCH (09:00)
--- NOTE | 2024-05-01 09:35 | NUR ---
0800 AND 0900 MEDICATIONS ADMINISTERED PER THE EMAR. FULL ASSESSMENT COMPLETE AND DOCUMENTED IN THE CHART. PATIENT IS ALERT AND ORIENTED TIMES FOUR. PATIENT IS ON ROOM AIR AND LUNG SOUNDS ARE CLEAR BILATERALLY. CARDIAC WITH NORMAL S1 AND S2 ON AUSCULTATION. RADIAL PULSES ARE STRONG BILATERALLY. SENSATION INTACT WITH NO COMPLAINTS OF NUMBNESS AND TINGLING. REMOVED NG TUBE AT BEDSIDE. PATIENT TOLERATED WELL. BOWEL TONES ARE HYPOACTIVE IN ALL FOUR QUADRANTS. PATIENT ADVANCED TO A CLEAR LIQUID DIET AND THE PATIENTS LAST BM WAS 04/20/24. MIDLINE ABDOMINAL DRESSING REMOVED AT THIS TIME. STERI STIPS INTACT OVER THE MIDLINE INCISION. DRY DRAINAGE NOTED ON THE STERI STRIPS. TRIPLE LUMEN IJ IN PLACE. ALL PORTS DRAW BACK BLOOD. BLUE PORT HEPARIN LOCKED AT THIS TIME. M.V.I. INFUSING IN THE BROWN PORT WHILE MEROPENEM AND MAGNESIUM SULFATE INFUSION ARE INFUSING IN THE WHITE PORT. TRIPLE LUMEN IJ DRESSING IS CLEAN, DRY, AND INTACT. HEBERT CATHETER IN PLACE. URINE IS YELLOW WITH SEDIMENT NOTED. HEBERT AND MARITZA CARE COMPLETE AT THIS TIME. PATIENT IS SITTING UPRIGHT IN BED WITH THE SCDS OFF AT THIS TIME. PATIENT RATED PAIN 1/10 IN THE ABDOMEN AFTER RECEIVING TORADOL AT 0844. PATIENT STATED NO FURTHER NEEDS AT THIS TIME. CALL LIGHT AND PERSONAL BELONGINGS ARE WITHIN REACH.
--- NOTE | 2024-05-01 09:54 | NUR ---
VISITED DURING SPIRITUAL CARE ROUNDS. PT APPEARED TO BE SLEEPING. DID NOT DISTURB. PROVIDED PRAYER.
--- NOTE | 2024-05-01 10:01 | NUR ---
Patient in bed, I emptied his vera and noticed cloudy urine, nurse has been notified.
--- NOTE | 2024-05-01 10:26 | NUR ---
PATIENT IS LYING IN BED WITH HOB ELEVATED. PATIENT WITH EYES CLOSED AND RESPIRATIONS ARE EVEN AND UNLABORED. CALL LIGHT AND PERSONAL BELONGINGS ARE WITHIN REACH.
--- NOTE | 2024-05-01 10:43 | NUR ---
PATIENT IS AMBULATING IN THE HALLWAY WITH FILOMENA NELSON AT THIS TIME.
--- NOTE | 2024-05-01 10:58 | NUR ---
PT WANTED TO WALK AND DID 6 ROUNDS AROUND THE NURSING STATION EVERY ROUND I ASKED HOW HE WAS FEELING AND HE WOULD SAY GOOD. PT WANTED TO GO BACK TO THE ROOM AND DIDNT NEED ANYTHING ELSE. CALL LIGHT SI WITHIN REACH.
--- NOTE | 2024-05-01 11:18 | NUR ---
PATIENT BED LINENS CHANGED AT THIS TIME. PATIENT IS SITTING UPRIGHT IN THE CHAIR WITH HIS BILATERAL LOWER EXTREMITIES ELEVATED AND IS LISTENING TO A PODCAST. PATIENT WITH NO COMPLAINTS OF NAUSEA OR PAIN. PATIENT STATED NO FURTHER NEEDS. CALL LIGHT AND PERSONAL BELONGINGS ARE WITHIN REACH.
--- NOTE | 2024-05-01 11:19 | NUR ---
PATIENT IS UP IN THE CHAIR SLEEPING.PATIENT HAS HAD HIS NG REMOVED AND IS TAKING CLEAR LIQUIDS. PATIENT IS PASSING FLATUS.PATIENT WILL BE HERE UNTIL MEDICALLY STABLE FOR DISCHARGE.
--- NOTE | 2024-05-01 12:09 | NUR ---
PATIENT IS SITTING UPRIGHT IN THE CHAIR AND EATING LUNCH AT THIS TIME. PATIENT STATES "WANTING TO TAKE IT SLOW" AFTER GETTING FOOD FOR THE FIRST TIME IN AWHILE. PATIENT WITH NO COMPLAINTS OF PAIN OR NAUSEA. PATIENT STATED NO NEEDS AT THIS TIME. CALL LIGHT AND PERSONAL BELONGINGS ARE WITHIN REACH.
--- NOTE | 2024-05-01 13:50 | NUR ---
1400 MEDICATIONS AND PRN ATIVAN ADMINISTERED PER THE EMAR. PATIENT TOLERATED HIS CLEAR LIQUID DIET WELL. PATIENT WITH NO COMPLAINTS OF NAUSEA OR VOMITING. PATIENT WITH PAIN RATED 1/10 IN THE ABDOMEN. PATIENT IS NOT REQUESTING PAIN MEDICATION AT THIS TIME. BOWEL TONES ARE ACTIVE IN ALL FOUR QUADRANTS. STERI STRIPS OVER THE MIDLINE ABDOMEN ARE INTACT. DRY DRAINAGE NOTED ON THE STERI STRIPS. WHITE PORT OF THE TRIPPLE LUMEN IJ FLUSHED WITH 20 ML NORMAL SALINE. BRISK BLOOD RETURN OBSERVED. IJ DRESSING IS CLEAN, DRY, AND INTACT. PATIENT IS SITTING UPRIGHT IN THE CHAIR WITH THE BILATERAL LOWER EXTREMITIES ELEVATED. PATIENT STATED NO FURTHER NEEDS AT THIS TIME. CALL LIGHT AND PERSONAL BELONGINGS ARE WITHIN REACH.
[2024-05-01] MEDS ORDERED: FAT EMULSION 20% 500 ML IV SCH (16:00)
--- NOTE | 2024-05-01 16:27 | NUR ---
1600 MEDICATIONS STARTED AT THIS TIME. PATIENT WITH NO COMPLAINTS OF NAUSEA OR PAIN. BROWN PORT FLUSHED WITH 20 ML NORMAL SALINE AND GETS BRISK BLOOD RETURN. PATIENT REQUESTING TO GO FOR A WALK AT THIS TIME. PATIENT STATED NO FURTHER NEEDS AT THIS TIME. CALL LIGHT AND PERSONAL BELONGINGS ARE WITHIN REACH.
--- NOTE | 2024-05-01 16:50 | NUR ---
PATIENT AMBULATED 9 LAPS AROUND THE MEDICAL SURGICAL FLOOR AT THIS TIME. PATIENT TOLERATED WELL WITH NO COMPLAINTS OF PAIN OR NUMBNESS AND TINGLING. IV PUMP INTAKE FLUIDS CLEARED. WHITE PORT OF TRIPLE LUMEN IJ FLUSHED WITH 10 ML NORMAL SALINE. BRISK BLOOD RETURN NOTED. TRIPLE IJ DRESSING IS CLEAN, DRY, AND INTACT. PATIENT GIVEN THE CHG WIPES AT THE BEDSIDE. PATIENT STATED HE WOULD DO IT TONIGHT. PATIENT IS SITTING UPRIGHT IN THE CHAIR WITH THE BLE ELEVATED. PATIENT STATED NO FURTHER NEEDS AT THIS TIME. CALL LIGHT AND PERSONAL BELONGINGS ARE WITHIN REACH.
--- NOTE | 2024-05-01 19:05 | NUR ---
REPORT RECEIVED FROM LETITIA MEJIA. pt RESTING IN THE CHAIR. pt DENIES ANY NEEDS AT THIS TIME. CALL LIGHT WITHIN REACH.
--- NOTE | 2024-05-01 20:25 | NUR ---
ASSESSMENT AND VITAL SIGNS DONE. SCHEDULED MEDICATIONS ADMINISTERED, SEE OCT. BG CHECKED WITH A RESULTS OF 91. STERI STRIPS IN PLACE. MODERATE DRAINAGE ON MIDLINE DRESSING. pt DENIES ANY OTHER NEEDS AT THIS TIME. IJ HEP LOCKED, ASSESSED, WNL. CALL LIGHT WITHIN REACH.
[2024-05-01] MEDS ORDERED: IBLOOD GLUCOSE TEST STRIP 1 EA TEST VI SCH (21:00)
[2024-05-01] MEDS ORDERED: Insulin Regular, Human 100 UNIT/ML ML SUB-Q SCH (21:00)
--- NOTE | 2024-05-01 22:38 | NUR ---
pt REQUESTED PAIN MEDICATION. PRN PAIN MEDS ADMINITERED. pt DENIES ANY OTHER NEEDS AT THIS TIME. CALL LIGHT WITHIN REACH.
[2024-05-02] VITALS (9 sets, daily range): BP systolic 101–121; BP diastolic 60–68
--- NOTE | 2024-05-02 00:02 | NUR ---
IV PUMP ALARMING, IV ABX FINISHED INFUSING. pt DENIES ANY OTHER NEEDS AT THIS TIME. CALL LIGHT WITHIN REACH.
--- NOTE | 2024-05-02 01:38 | NUR ---
IV ABX INFUSING PER ORDER, SEE MAR. pt DENIES ANY OTHER NEEDS AT THIS TIME. CALL LIGHT WITHIN REACH.
--- NOTE | 2024-05-02 02:45 | NUR ---
pt REQUESTED PAIN MEDICATION. PRN PAIN MEDS ADMINISTERED. HEBERT IRRAGETED WITH 30ML NS. pt DENIES ANY OTHER NEEDS AT THIS TIME. CALL LIGHT WITHIN REACH.
--- NOTE | 2024-05-02 05:30 | NUR ---
pt REQUESTED PRN PAIN MEDICATION. PRN PAIN MEDS ADMINITERED FOR PAIN 10/30. BLOOD DRAWN FROM TRIPLE LUMAN IJ PER PROTOCOL. pt DENIES ANY OTHER NEEDS AT THIS TIME. CALL LIGHT WITHIN REACH.
[2024-05-02 05:43] LABS: ANION GAP 5.8 (7-21); BUN/CREATININE RATIO 34.93 (6.0-28.6); CALCIUM 7.7 mg/dL (8.5-10.1); CREATININE, SERUM 0.83 mg/dL (0.70-1.30); MAGNESIUM 1.5 mg/dL (1.8-2.4); PHOSPHORUS, INORGANIC 3.2 mg/dL (2.5-4.9); POTASSIUM 3.8 mmol/L (3.5-5.1)
--- NOTE | 2024-05-02 06:23 | NUR ---
pt RESTED FOR MOST OF THE NIGHT. pt VITAL SIGNS DONE. pt PEED IN URINAL EVERY TIME. pt A&O X4. NO NEW DEFICITS AT THIS TIME.
--- NOTE | 2024-05-02 07:09 | NUR ---
VERBAL REPORT RECEIVED FROM ROBERTO LAKE. PT RESTS IN BED WITH EYES CLOSED, RESP EVEN AND UNLABORED.
--- NOTE | 2024-05-02 07:35 | NUR ---
Board has been updated and call light has been placed within reach
--- NOTE | 2024-05-02 08:02 | NUR ---
BLUE MEDIAL PORT FLUSHED WITH 10 CC OF NS, BLOOD RETURN NOTED, INFUSION STARTED. WHITE PROXIMAL PORT FLUSHED WITH 10 CC OF NS, BLOOD RETURN NOTED, MEDICATION ADMINISTERED ORDERED, FOLLOWED BY 10 CC FLUSHED AND HEPARIN ORDERED. NOTED BLOOD IN CLAVE, CLAVE CHANGED AND CHG CAP PUT IN PLACE. BROWN DISTAL PORT INFUSING TPN AND LIPIDS.
--- NOTE | 2024-05-02 09:00 | NUR ---
Spoke with Zeyad. He is resting in bed. Denies needs. Cont. to plan to go home when he is medically stable with his family. States he is taking clear liquids.
--- NOTE | 2024-05-02 10:02 | NUR ---
Patient room has been cleaned and tea was given per patient request. Call light has beenplaced within reach. No further request from patient at this time
--- NOTE | 2024-05-02 10:42 | NUR ---
PT NOT AVAILABLE FOR VISIT. PROVIDED PRAYER.
--- NOTE | 2024-05-02 12:25 | NUR ---
NOTED ONLY 100MLS OF OUTPUT THIS SHIFT OF URINE. HEBERT CATHETER NOT ACTIVELY DRAINING. PT REPORTS LOWER ABDOMINAL DISCOMFORT. HEBERT FLUSHED WITH 30 MLS OF NS FOR IRRIGATION, 30 MLS PULLED BACK. CLOUDY YELLOW URINE RETURN NOTED. HEBERT CATHETER NOW DRAINS YELLOW URINE TO GRAVITY, NOTED 250 MLS IN BAG AT THIS TIME. PT REPORTS SOME RELIEF OF ABDOMINAL DISCOMFORT.
[2024-05-02] MEDS ORDERED: MAGNESIUM SULFATE 2 GM/50 ML BAG IV ONE (12:45)
--- NOTE | 2024-05-02 13:04 | NUR ---
DR. GANN INTO SEE PT.
[2024-05-02] MEDS ORDERED: levoFLOXacin 500 MG TAB PO SCH (13:15)
[2024-05-02] MEDS ORDERED: ACETAMINOPHEN 500 MG TAB PO PRN (13:15)
[2024-05-02] MEDS ORDERED: OXYCODONE HCL 5 MG TAB PO PRN (13:15)
[2024-05-02] MEDS ORDERED: LORazepam 2 MG/ML VIAL IV PRN (13:15)
--- NOTE | 2024-05-02 14:10 | NUR ---
PT AMBULATES IN HALLWAY SEVERAL LAPS WITH LUKAS BARRETT CNA.
--- NOTE | 2024-05-02 14:49 | NUR ---
Walked with patient around the nurse station six times. No signs of shortness of breath or nausea. Patient then sat back in his recliner. No requests from patient at this time and call light has been placed within reach.
[2024-05-02] MEDS ORDERED: [UNRECOGNIZED DRUG - OTHER] IV SCH (16:00)
[2024-05-02] MEDS ORDERED: SELENIUM INSULIN REGULAR HUMAN IV SCH (16:00)
[2024-05-02] MEDS ORDERED: MULTIVITAMINS ZINC IV SCH (16:00)
[2024-05-02] MEDS ORDERED: COPPER IV SCH (16:00)
[2024-05-02] MEDS ORDERED: MANGANESE IV SCH (16:00)
--- NOTE | 2024-05-02 16:38 | NUR ---
BLADDER DISTENTION NOTED ON PALPATION, NO NEW DRAINAGE IN HEBERT BAG SINCE 1400 I&Os. HEBERT CATH FLUSHED WITH 30ML NS IRRIGATION, 30ML PULLED BACK, URINE RETURN NOTED WITH LARGE AMOUNT OF FLAKY SEDIMENT. HEBERT CATHETER ACTIVELY DRAINS CLEAR YELLOW URINE TO GRAVITY INTO CLOSED SYSTEM COLLECTION BAG. SMALL AMOUNT OF FLAKY SEDIMENT NOTED WHILE DRAINING. 600ML OF URINE NOTED IN COLLECTION BAG AFTER FLUSHING CATHETER.
--- NOTE | 2024-05-02 17:02 | NUR ---
PT CONTINUES TO REPORT FLATUS, BOWEL TONES HYPOACTIVE X4, IMPROVED FROM THIS AM WHEN BOWEL TONES WERE ACTIVE X3 QUADRANTS. NO NEW DRAINAGE TO MID-LINE INCISION, STERI-STRIPS INTACT, PERIWOUND PINK, DRY AND INTACT. PT ADVANCED TO FULL LIQUID DIET, TOLERATING THIS WELL. TPN CONTINUES TO INFUSE, LIPID INFUSION COMPLETE. PROXIMAL AND DISTAL CENTRAL LINE PORTS HEPARIN LOCKED AT THIS TIME, CENTRAL LINE DRESSING INTACT, LAST CHANGED 04/28/24. HEBERT CATHETER REQUIRED IRRIGATION X2 TODAY AFTER OUTPUT STOPPED AND PT HAVE BLADDER DISTENTION UPON PALPATION. HEBERT CATHETER AND BLADDER DISTENTION WILL REQUIRE CLOSE MONITORING TO DETECT POSSIBLE CATHETER BLOCKAGE. LARGE AMOUNT OF PARTICULATES AND SEDIMENT NOTED WHEN FLUSHED FOLLOWED BY FREE FLOWING URINE. PT RECEIVED MAG SUPPLMENTATION 2 GRAM VIA IV. TYLENOL AND OXYCODONE NOW AVAILABLE FOR PAIN MANAGEMENT. ATIVAN AVAILABLE FOR ANXIETY. AMBULATED IN HALLWAY TODAY VIGOROUSLY, TOLERATED THIS WELL. MANY MEDICATIONS CHANGED FROM IV TO PO. PT TOLEREATING PO INTAKE WELL.
--- NOTE | 2024-05-02 18:35 | NUR ---
Patient mentioned having stomach pain, nurse has been notified patient- said pain level was a five out of ten with discomfort.
--- NOTE | 2024-05-02 18:44 | NUR ---
IN PT REPORTING PAIN, DISCOMFORT AT INCISION SITE AND WITHIN ABDOMEN. PRN PAIN MEDICATION PROVIDED, REINFORCED PT EDUCATION ON PAIN MANAGEMENT, ICE PACK PROVIDED. PT RESTING SUPINE IN BED WATCHING TV, CALL LIGHTIN LAP, NO OTHER NEEDS NOTED AT THIS TIME.
--- NOTE | 2024-05-02 19:05 | NUR ---
REPORT RECEIVED FROM HELGA MEJIA. pt RESTING IN THE BED. pt DENIES ANY OTHER NEEDS AT THIS TIME. CALL LIGHT WITHIN REACH.
--- NOTE | 2024-05-02 20:55 | NUR ---
ASSESSMENT AND VITAL SIGNS DONE. HYPOACTIVE BOWEL TONES. HEBERT EMPTIED AND CATH CARE DONE BY pt. MIDLINE INCISION HAS MODERATE DRAINAGE ON IT. pt DENIES ANY OTHER NEEDS AT THIS TIME. SCHEDULED MEDICATION ADMINISTERED, SEE MAR. CALL LIGHT WITHIN REACH.
[2024-05-02] MEDS ORDERED: FAMOTIDINE 20 MG TAB PO SCH (21:00)
--- NOTE | 2024-05-02 23:35 | NUR ---
pt RESTING IN THE BED WITH EYES CLOSED. RR EVEN AND UNLABORED. CALL LIGHT WITHIN REACH.
[2024-05-03] VITALS (10 sets, daily range): BP systolic 98–128; BP diastolic 58–75
--- NOTE | 2024-05-03 01:36 | NUR ---
pt RESTING IN THE BED WITH EYES CLOSED. RR EVEN AND UNLABORED. CALL LIGHT WITHIN REACH.
--- NOTE | 2024-05-03 03:10 | NUR ---
pt RESTING IN THE BED WITH EYES CLOSED. RR EVEN AND UNLABORED. CALL LIGHT WITHIN REACH.
--- NOTE | 2024-05-03 04:05 | NUR ---
pt C/O OF 11/30 PAIN. PRN PAIN MEDICATION ADMINISTERED, SEE MAR. pt DENIES ANY OTHER NEEDS AT THIS TIME.
--- NOTE | 2024-05-03 05:02 | NUR ---
pt RESTING IN THE BED WITH EYES CLOSED. RR EVEN AND UNLABORED. CALL LIGHT WITHIN REACH.
[2024-05-03 06:24] LABS: ANION GAP 9.2 (7-21); BUN/CREATININE RATIO 30.76 (6.0-28.6); CREATININE, SERUM 0.91 mg/dL (0.70-1.30); MAGNESIUM 1.6 mg/dL (1.8-2.4); PHOSPHORUS, INORGANIC 2.9 mg/dL (2.5-4.9); POTASSIUM 4.2 mmol/L (3.5-5.1)
--- NOTE | 2024-05-03 06:44 | NUR ---
pt RESTED THROUGH OUT THE NIGHT. pt INDEPENDENT IN THE RM. pt HAD BM IN THE NIGHT. HEBERT DIDN'T NEED TO BE FLUSHED, SEDIMENT WAS IN THE BOTTOM OF THE BAG.
--- NOTE | 2024-05-03 07:10 | NUR ---
RECEIVED REPORT FROM ROBERTO LAKE. PT RESTING IN BED WITH EYES CLOSED, CALL LIGHT WITHIN REACH.
--- NOTE | 2024-05-03 08:57 | NUR ---
Board has been updated patient appears to be in a good mood. Hearing aids have been put in. No further request from patient at this time, call light has been placed within reach
--- NOTE | 2024-05-03 09:00 | NUR ---
Spoke with Zeyad. He is now on full liq. He want to go home, but is unsure if he will be released today. He denies needs.
--- NOTE | 2024-05-03 09:15 | NUR ---
PT SITTING UP IN BED AWAKE, STATES PAIN IS 1-2/10 IN HIS ABDOMEN, STATES NO NEED FOR PAIN CONTROL MEASURES AT THIS TIME. ALL THREE LUMENS OF CENTRAL LINE HAVE BRISK BLOOD RETURN, ALL THREE FLUSHED WITH 10ML NS EACH. BROWN LUMEN CURRENTLY IN USE FOR TPN, BLUE AND WHITE LUMENS HEPARIN LOCKED PER ORDER, CAPS APPLIED TO ALL. CENTRAL LINE DRESSING WNL. PT REFUSES SCDs THIS MORNING HE IS UP IN ROOM INDEPENDENTLY AND STATES HE PLANS TO WALK THIS MORNING. ABDOMEN TENDER TO PALPATION, BOWEL TONES HYPOACTIVE IN ALL BUT RUQ WHERE THEY ARE MORE ACTIVE AT THIS TIME. HEBERT CATHETER REMAINS IN PLACE, DRAINING YELLOW URINE, SEDIMENT REMAINS PRESENT D/T HX. CATHETER CARE WIPES PROVIDED TO PT PT REQUESTS TO DO THEM INDEPENDENTLY, INSTRUCTION GIVEN ON USE, PT VERBALIZES UNDERSTANDING. MIDLINE INCISION W/O SIGNS OF REDNESS, SWELLING, OR NEW DRAINAGE AT THIS TIME. PT TAKES PO MEDICATION W/O DIFFICULTY. PT STATES NO NEEDS AT THIS TIME, CALL LIGHT WITHIN REACH.
--- NOTE | 2024-05-03 09:20 | NUR ---
THIS RN FINDS X2 500MG ACETAMINOPHEN TABLETS UNOPENED ON COMPUTER IN PT ROOM. PT STATES HE DID NOT RECEIVE TYLENOL THIS MORNING THAT HE IS AWARE OF. INFANT CHILDCARE PROVIDER NOTIFIED, PHARMACY CONTACTED. PHARMACY STATES TO RETURN MEDICATION TO [facility] AND TO CHART NOT GIVEN ON PREVIOUS "GIVEN" ACETAMINOPHEN.
--- NOTE | 2024-05-03 09:59 | NUR ---
Upon entering room pt is found to be in bed and attention to cell phone. Pt oriented to person, place and time. With dc discussion patient states "I don't need any help at home when I leave." Patient feels he is ready for discharge, signs 2nd IMM letter. Denies needs at this time. When asked about his care patient states "My care has been excellent."
--- NOTE | 2024-05-03 10:03 | NUR ---
PT NOT AVAILABLE FOR VISIT. PROVIDED PRAYER.
--- NOTE | 2024-05-03 10:15 | NUR ---
PT DISCONNECTED FROM TPN FOR SHOWER, BROWN LUMEN SALINE LOCKED AND CAP APPLIED.
--- NOTE | 2024-05-03 10:35 | NUR ---
Patient showerd, as patient showered i cleaned patient room and changed his linens. I also got him a hot cup of tea, and a warm blanket. No further request from patient
--- NOTE | 2024-05-03 10:45 | NUR ---
PT RECONNECTED TO TPN VIA BROWN LUMEN ON CENTRAL LINE AFTER SHOWER. PT STATES PAIN IS 3/10 IN ABDOMEN, REQUESTS TYLENOL, GIVEN. PT STATES NO FURTHER NEEDS AT THIS TIME. CALL LIGHT WITHIN REACH.
[2024-05-03] MEDS ORDERED: LORazepam 0.5 MG TAB PO PRN (12:45)
[2024-05-03] MEDS ORDERED: MAGNESIUM SULFATE 2 GM/50 ML BAG IV SCH (12:45)
--- NOTE | 2024-05-03 12:50 | NUR ---
TPN TAPERED TO RATE OF 41.9 PER MD ORDER. PT VERBALIZES UNDERSTANDING OF POC, STATES NO QUESTIONS AT THIS TIME, CALL LIGHT WITHIN REACH.
--- NOTE | 2024-05-03 13:03 | NUR ---
PT REQUESTS THROAT LOSENGE, GIVEN. PT UPDATED ON POC, VERBALIZES UNDERSTANDING, STATES NO QUESTIONS AT THIS TIME. PT STATES NO FURTHER NEEDS AT THIS TIME, CALL LIGHT WITHIN REACH.
--- NOTE | 2024-05-03 14:46 | NUR ---
HEBERT CATHETER REMOVED PER MD ORDER. PT TOLERATES WELL. PT VERBALIZES UNDERSTANDING OF PLAN REGARDING SELF CATH. PT EDUCATION ON LOW FIBER DIET, VERBALIZES UNDERSTANDING. PT STATES NO FURTHER NEEDS AT THIS TIME, CALL LIGHT WITHIN REACH.
--- NOTE | 2024-05-03 15:02 | NUR ---
SELF CATH SUPPLIES TO ROOM FROM UROLOGY. PT STATES NO FURTHER NEEDS AT THIS TIME, CALL LIGHT WITHIN REACH.
--- NOTE | 2024-05-03 15:41 | NUR ---
IV PUMP ALARMING, THIS RN TO BEDSIDE TO DISCONNECT MAGNESIUM LINE IT HAS COMPLETED. WHITE LUMEN USED FOR MAGNESIUM FLUSHED WITH 10ML NC, LOCKED, AND CAP PLACED. GENERAL DISTILLERY WORKER AT THE BEDSIDE DISCUSSING LOW-FIBER DIET EDUCATION. PT STATES NO FURTHER NEEDS AT THIS TIME, CALL LIGHT WITHIN REACH.
--- NOTE | 2024-05-03 15:59 | NUR ---
PT STATES CHRIS SALEEM COMPLETED THIS MORNING WITH ASISTANCE FROM POST PRODUCTION ASSISTANT.
--- NOTE | 2024-05-03 16:08 | NUR ---
PT UP TO CHAIR READING, STATES NO NEEDS AT THIS TIME, CALL LIGHT WITHIN REACH.
--- NOTE | 2024-05-03 16:28 | NUR ---
CONSULT RECEIVED FOR LOW-FIBER DIET EDUCATION. PATIENT IS SITTING IN RECLINER READING A BOOK. HE IS IN GOOD SPIRITS. HIS IS NOT HERE AT THIS TIME. HE STATES HE DOESN'T WANT TO EXPERIENCE A BOWEL OBSTRUCTION AGAIN. PROVIDED HIM A HANDOUT ON A LOW-FIBER DIET. ENCOURAGED HIM TO EAT 4-6 SMALL MEALS/SNACKS DAILY. EAT PROTEIN SEVERAL TIMES THROUGHOUT THE DAY. LIST OF FOODS RECOMMENDED AND FOODS NOT RECOMMENDED PROVIDED WELL A SAMPLE 1-DAY MENU. PATIENT STATES HE MIXES 2 TEASPOONS OF BLACK RASPBERRY POWDER IN WATER DAILY. HE EATS 2 FLOUR TORTILLAS WITH HAM, CHEESE, RED ONION, AND PICKLED BEETS FOR BREAKFAST. HE DOESN'T WANT COFFEE, HE WANTS 2 BLACK TEA BAGS WITH 1 CUP HOT WATER FOR BREAKFAST. ALMOND MILK INSTEAD OF REGULAR MILK. HE DOESN'T CARE TO EAT A LOT OF BREAD, HATES CREAM OF WHEAT. LOVES STIR-FRIES. HONEY INSTEAD OF SUGAR. HE SHOULD DO WELL ON A LOW-FIBER DIET. MY NAME AND OFFICE # PROVIDED IN CASE QUESTIONS ARISE IN THE FUTURE.
--- NOTE | 2024-05-03 17:01 | NUR ---
PT UP WALKING IN [place] WITH AUTOMATION QA TESTER, PT DENIES PAIN AT THIS TIME, STATES NO CURRENT NEEDS.
[2024-05-03] MEDS ORDERED: DEXTROSE 5% - LACTATED RINGERS 1,000 ML IV SCH (17:30)
--- NOTE | 2024-05-03 17:36 | NUR ---
Patient walked nine laps around the nurse station no complaint of nausea or shortness of breath. I then put patient to bed with a cup of tea. No further request from patient at this time. Call light has been placed within reach
--- NOTE | 2024-05-03 17:49 | NUR ---
PT AWAKE IN BED, STATES HE HAD ANOTHER BM AND VOIDED, STATES HE DOES NOT TYPICALLY SELF CATH AT THIS TIME, BUT PLANS TO ON HIS AT HOME SCHEDULE THIS EVENING, PT STATES SELF CATH SUPPLIES ARE WHAT HE USES AT HOME, STATES NO QUESTIONS AT THIS TIME, CALL LIGHT WITHIN REACH.
--- NOTE | 2024-05-03 19:05 | NUR ---
REPORT RECEIVED FROM NATALEE MEJIA. pt RESTING IN THE BED. BOARD UPDATED. pt REQUESTED PRN PAIN MEDICATION. CALL LIGHT WITHIN REACH.
--- NOTE | 2024-05-03 19:25 | NUR ---
pt C/O OF 11/30 PAIN. PRN PAIN MEDICATION ADMINISTERED, SEE MAR. WATER REFRESHED. pt DENIES ANY OTHER NEEDS AT THIS TIME.
--- NOTE | 2024-05-03 20:46 | NUR ---
RECRUITING ASSISTANT OBTAINED VITALS. NO NEW I&O AT THIS TIME. PT ASKING FOR NIGHT TIME MEDS. RN NOTIFED. PT STATES NO FURTHER NEEDS AT THIS TIME. CALL LIGHT WITHIN REACH.
[2024-05-03] MEDS ORDERED: MELATONIN 1 MG TAB PO SCH (21:00)
--- NOTE | 2024-05-03 21:10 | NUR ---
ASSESSMENT DONE. pt REQUESTED ATIVAN. PRN AND SCHEDULED MEDICATIONS ADMINISTERED. TRIPLE LUMEN IJ HEP LOCKED PER ORDER. pt DENIES ANY OTHER NEEDS AT THIS TIME. CALL LIGHT WITHIN REACH. ACTIVE BOWEL TONES. MID LINE INCISION COVERED WITH STERI STRIP. MODERATE DRAINAGE ON DRESSING THAT IS NOT NEW. TPN INFUSING PER ORDER.
--- NOTE | 2024-05-03 23:05 | NUR ---
pt IV BEEPING. TPN FINISHED AND IVF INFUSING PER ORDER, SEE MAR. pt DENIES ANY OTHER NEEDS AT THIS TIME. CALL LIGHT WITHIN REACH.
--- NOTE | 2024-05-04 01:25 | NUR ---
pt RESTING IN THE BED WITH EYES CLOSED. RR EVEN AND UNLABORED. CALL LIGHT WITHIN REACH.
--- NOTE | 2024-05-04 03:42 | NUR ---
pt RESTING IN THE BED WITH EYES CLOSED. RR EVEN AND UNLABORED. CALL LIGHT WITHIN REACH. IVF INFUSING PER ORDER.
[2024-05-04 04:36] VITALS: BP 102/56
[2024-05-04 04:46] VITALS: BP 102/56
[2024-05-04 05:28] LABS: BASOPHILS 0.6 % (0-2); EOSINOPHILS 11.1 % (0-6); HEMATOCRIT 30.4 % (35.0-50.0); HEMOGLOBIN 9.7 g/dL (12.0-18.0); LYMPHOCYTES 11.3 % (24-44); MCH 28.6 (27-36); MCV 89.3 fl (81-99); MONOCYTES 7.8 % (0-12); NEUTROPHILS 69.2 % (39-80); PLATELET COUNT 383 K/uL (140-440); RDW 14.9 (10.5-15.0)
[2024-05-04 05:38] LABS: ANION GAP 10.9 (7-21); BUN/CREATININE RATIO 22.54 (6.0-28.6); CALCIUM 8.1 mg/dL (8.5-10.1); CREATININE, SERUM 1.02 mg/dL (0.70-1.30); MAGNESIUM 1.8 mg/dL (1.8-2.4); POTASSIUM 4.9 mmol/L (3.5-5.1)
--- NOTE | 2024-05-04 05:52 | NUR ---
pt RESTED THROUGH OUT THE NIGHT. TPN FINISHED, AND IVF FLUIDS INFUSING, PER ORDER. MIDLINE INCISION WITH MODERATE OLD DRAINAGE, STERI STRIPS INTACT. TRIPLE LUMAN IJ DRESSING INTACT. IJ HEP LOCKED.
--- NOTE | 2024-05-04 07:44 | NUR ---
Patient resting in bed, eyes closed, respirations even and non labored. Iv fluids infusing per provider order. Call light within reach of patient.
[2024-05-04] MEDS ORDERED: LEVOFLOXACIN500 MG PO (08:50)
[2024-05-04] MEDS ORDERED: ACETAMINOPHEN500 MG PO (08:51)
[2024-05-04] MEDS ORDERED: OXYCODONE HCL5 MG PO (08:51)
[2024-05-04] MEDS ORDERED: MAG-OXIDE400 MG PO (08:53)
--- NOTE | 2024-05-04 10:18 | NUR ---
Spoke with Rex. Vo in the room. He states Dr. Wilson saw him and he is discharging to home today. He denies any needs and his will transport him home.
[2024-05-04 10:46] VITALS: BP 128/69
--- NOTE | 2024-05-04 15:18 | PATH ---
[facility] [address] [place], [place] [address] Signed SPECIMEN(S): A SEGMENT OF SMALL BOWEL SPECIMEN SOURCE: A. SEGMENT OF SMALL BOWEL CLINICAL HISTORY: Small bowel obstruction, s/p small bowel resection 04/20/2024 FINAL PATHOLOGIC DIAGNOSIS: Segment of small bowel: - Segment of benign small bowel with prominent subserosal and bowel wall acute and chronic inflammation and eosinophils. - Prior anastomotic site. - Negative for atypical features. - Incidental lymph node with reactive histologic features. JVR:thea MICROSCOPIC EXAMINATION: Histologic sections of all submitted blocks are examined by light microscopy. These findings, together with the gross examination, support the pathologic diagnosis. GROSS DESCRIPTION: The specimen, labeled and designated "Dontae, R, segment of small bowel previous anastomosis," is received in formalin and consists of an irregular fragment of bowel previously open measuring 5.0 x 5.0 x 2.7 cm with attached mesenteric fat measuring out to 1.4 cm. The serosa pink-bentley smooth with focal hemorrhage and attached black sutures consistent with an area of anastomosis. One end is closed off by continuous line of silver metallic cory. The mucosa shows a circular area of anastomosis measuring 3.2 cm in greatest diameter. No grossly identifiable mucosal lesions seen. Land Economist sections are submitted. A1 margin under staple line A2A3 roofing sales representative sections of the area of anastomosis JM (under the direct supervision of a pathologist) The Gross Description was prepared using a voice recognition system. The report was reviewed for accuracy; however, sound-alike word errors, addition and/or deletions may occur. If there is any question about this report, please contact Client Services. PATIENT NAME: VAN ALVAREZ PATHOLOGY DATE OF : 55 REPORT #: [id number] PHYSICIAN: RAN PATHOLOGY PCP: MELY GARCIA REPORT IS CONFIDENTIAL AND NOT TO BE RELEASED WITHOUT AUTHORIZATION [facility] [address] [place] [address] Signed PERFORMING LABORATORY: Technical component was performed by [facility], [address] [place] [address] (CLIA# [id number]). Professional interpretation was performed by [facility] - [address] [address] (CLIA#: [id number]). Diagnostician: Hesham Sarmiento MD Pathologist Electronically Signed 05/04/2024 Copies: ~ PATIENT NAME: VAN ALVAREZ PATHOLOGY DATE OF : 55 REPORT #: [id number] PHYSICIAN: RAN PATHOLOGY PCP: MELY GARCIA REPORT IS CONFIDENTIAL AND NOT TO BE RELEASED WITHOUT AUTHORIZATION
== END 2024-05-04 11:00 | disposition home or self-care (01) | DRG 329 ==
LOC: CCU 07:46 → MS 09:13 → CCU 04-27 10:55 → MS 04-29 15:38
PROVIDERS: ADMIT Surgery; ATTEND Surgery
PROC: 0D9880Z Drainage of Small Intestine with Drainage Device, Via Natural or Artificial Opening Endoscopic (ICD-10-PCS; 2024-04-28)
PROC: 02HV33Z Insertion of Infusion Device into Superior Vena Cava, Percutaneous Approach (ICD-10-PCS; 2024-04-28)
PROC: 0DB80ZZ Excision of Small Intestine, Open Approach (ICD-10-PCS; principal; 2024-04-28 12:30)
PROC: 0JH60WZ Insertion of Totally Implantable Vascular Access Device into Chest Subcutaneous Tissue and Fascia, Open Approach (ICD-10-PCS; 2024-04-28 12:30)
DX: K56.609 Unspecified intestinal obstruction, unspecified as to partial versus complete obstruction (principal); K63.1 Perforation of intestine (nontraumatic); N39.0 Urinary tract infection, site not specified; B96.20 Unspecified Escherichia coli [E. coli] as the cause of diseases classified elsewhere; B95.3 Streptococcus pneumoniae as the cause of diseases classified elsewhere; F41.9 Anxiety disorder, unspecified; F17.200 Nicotine dependence, unspecified, uncomplicated; F10.10 Alcohol abuse, uncomplicated; K66.8 Other specified disorders of peritoneum; K66.0 Peritoneal adhesions (postprocedural) (postinfection); Z90.49 Acquired absence of other specified parts of digestive tract; Z85.01 Personal history of malignant neoplasm of esophagus
CPT/HCPCS: 00790; 36415; 36592; 71045; 71260; 74018; 74019; 74177; 80048; 80053; 80061; 83690; 83735; 84100; 84134; 85025; 85060; 85610; 85730; 87070; 87075; 87205; 88307; 93005; 93010; 94760; A9270; C1751; J0330; J1100; J1160; J1644; J1720; J1815; J1885; J2060; J2185; J2250; J2270; J2371; J2405; J2704; J2765; J3010; J3430; J3475; J3490; J7060; J7121; Q9967